=== PATIENT | male | born 1975 | race African-American/Black ===

== ENCOUNTER 2016-05-29 14:21 | Observation (INO) | payer MEDICARE, MEDICAID ==
[2016-05-29] MEDS ORDERED: ASPIRIN 81 MG TABLET, CHEWABLE PO ONE (14:51)
--- NOTE | 2016-05-29 14:55 | ER Document Report ---
ED Medical Screen (RME) - General Stated Complaint: CHEST PAIN Mode of Arrival: Ambulatory Information source: Patient Notes: 40 y/o M presents to ED c/o chest pain. Reports onset of chest pain today while driving. States pain worse with deep breathing. Denies fever or recent illness. I have greeted and performed a rapid initial assessment of this patient. A comprehensive ED assessment and evaluation of the patient, analysis of test results and completion of the medical decision making process will be conducted by additional ED providers. TRAVEL OUTSIDE OF THE [place] IN LAST 30 DAYS: No - Related Data Allergies/Adverse Reactions: No Known Allergies Allergy (Verified 05/29/16 14:51) Past Medical History - Social History Chew tobacco use (# tins/day): No Frequency of alcohol use: None Drug Abuse: None - Past Medical History Cardiac Medical History: Reports: Hx Hypertension Endocrine Medical History: Reports: Hx Diabetes Mellitus Type 2 Renal/ Medical History: Denies: Hx Peritoneal Dialysis Musculoskeltal Medical History: Reports Hx Arthritis - gout, rheumatoid arthritis Psychiatric Medical History: Reports: Hx Schizophrenia Past Surgical History: Reports: Hx Orthopedic Surgery - Immunizations Immunizations up to date: Yes Hx Diphtheria, Pertussis, Tetanus Vaccination: No Physical Exam - Vital signs Vitals: Temp Pulse Resp BP Pulse Ox 98.0 F 95 18 145/92 H 97 05/29/16 14:49 05/29/16 14:49 05/29/16 14:49 05/29/16 14:49 05/29/16 14:49 - General General appearance: Alert In distress: None - Respiratory Respiratory status: No respiratory distress - Cardiovascular Rhythm: Regular Pulses: Normal: Radial Normal capillary refill: Yes Course - Vital Signs Vital signs: Temp Pulse Resp BP Pulse Ox 98.0 F 95 18 145/92 H 97 05/29/16 14:49 05/29/16 14:49 05/29/16 14:49 05/29/16 14:49 05/29/16 14:49
[2016-05-29 15:15] LABS: ABSOLUTE BASOPHILS # (AUTO) 0.1 10^3/uL (0.0-0.2); ABSOLUTE EOSINOPHILS # (AUTO) 0.2 10^3/uL (0.0-0.6); ABSOLUTE LYMPHOCYTES (AUTO) 2.3 10^3/uL (0.5-4.7); ABSOLUTE MONOCYTES (AUTO) 0.5 10^3/uL (0.1-1.4); BASOPHILS % (AUTO) 0.7 % (0-2); EOSINOPHILS % (AUTO) 2.2 % (0-6); HEMATOCRIT 45.2 % (37.9-51.0); HEMOGLOBIN 15.4 g/dL (13.5-17.0); LYMPHOCYTES % (AUTO) 28.5 % (13-45); MEAN CORPUSCULAR VOLUME 85 fl (80-97); MONOCYTES % (AUTO) 6.5 % (3-13); SEGMENTED NEUTROPHILS % (AUTO) 62.1 % (42-78); WHITE BLOOD COUNT 8.1 10^3/uL (4.0-10.5)
[2016-05-29 15:28] LABS: ALANINE AMINOTRANSFERASE 36 U/L (21-72); ALBUMIN 4.4 g/dL (3.5-5.0); ALKALINE PHOSPHATASE 113 U/L (38-126); ANION GAP 15 (5-19); ASPARTATE AMINO TRANSFERASE 28 U/L (17-59); BILIRUBIN,TOTAL 0.5 mg/dL (0.2-1.3); BLOOD UREA NITROGEN 13 mg/dL (7-20); CARBON DIOXIDE 25 mmol/L (22-30); CHLORIDE 101 mmol/L (98-107); CREATINE KINASE 131 U/L (55-170); CREATININE RESULT 1.35 mg/dL (0.52-1.25); GLUCOSE 239 mg/dL (75-110); LIPASE 260.3 U/L (23-300); SODIUM 140.9 mmol/L (137-145); TOTAL PROTEIN 7.3 g/dL (6.3-8.2)
--- NOTE | 2016-05-29 15:31 | EKG REPORT ---
SEVERITY:- BORDERLINE ECG - SINUS RHYTHM BORDERLINE T ABNORMALITIES, INFERIOR LEADS : Confirmed by: Navdeep Arriaza MD 29-May-2016 15:30:57
[2016-05-29 15:39] LABS: CREATINE KINASE MB 1.04 ng/mL (<4.55)
[2016-05-29 15:46] LABS: TROPONIN I 0.035 ng/mL
[2016-05-29] MEDS ORDERED: ACETAMINOPHEN 325 MG TABLET PO ONE (16:22)
[2016-05-29] MEDS ORDERED: ONDANSETRON HCL INJ/PF 4 MG/2 ML SDV IV ONE (16:22)
[2016-05-29] MEDS ORDERED: MORPHINE SULFATE 10 MG/ML INJ IV PRN (16:22)
[2016-05-29] MEDS ORDERED: NITROGLYCERIN 2% OINTMENT 1 GM PACKET TP ONE (16:22)
[2016-05-29] MEDS ORDERED: NORMAL SALINE 1000 ML 1,000 ML IV PRN (16:25)
--- NOTE | 2016-05-29 16:26 | ER Document Report ---
ED General - General Chief Complaint: Chest Pain Stated Complaint: CHEST PAIN Time seen by provider: 16:23 Mode of Arrival: Ambulatory Information source: Patient Notes: As is a 40-year-old man with a history of diabetes, gout, hypertension who presents to the emergency room with retrosternal chest pain. He describes it as sometimes sharp and sometimes heavily. Pain is nonradiating. There is no association with exertion. It does seem to be worse with movement. He denies any fever, chills. TRAVEL OUTSIDE OF THE [place] IN LAST 30 DAYS: No - HPI Onset: Yesterday Onset/Duration: Intermittent Quality of pain: Dull Severity: Moderate Pain Level: 3 Associated symptoms: denies: Chills, Fever, Shortness of breath Exacerbated by: Movement Relieved by: Denies Similar symptoms previously: No Recently seen / treated by doctor: No - Related Data Allergies/Adverse Reactions: No Known Allergies Allergy (Verified 05/29/16 14:51) Past Medical History - General Information source: Patient - Social History Smoking Status: Never Smoker Chew tobacco use (# tins/day): No Frequency of alcohol use: None Drug Abuse: None Lives with: Family Family History: Reviewed & Not Pertinent Patient has suicidal ideation: No Patient has homicidal ideation: No - Past Medical History Cardiac Medical History: Reports: Hx Hypertension Pulmonary Medical History: Reports: None Neurological Medical History: Reports: None Endocrine Medical History: Reports: Hx Diabetes Mellitus Type 2 Renal/ Medical History: Denies: Hx Peritoneal Dialysis Malignancy Medical History: Reports None Musculoskeltal Medical History: Reports Hx Arthritis - gout, rheumatoid arthritis Psychiatric Medical History: Reports: Hx Schizophrenia Past Surgical History: Reports: Hx Orthopedic Surgery - Immunizations Immunizations up to date: Yes Hx Diphtheria, Pertussis, Tetanus Vaccination: No Hx Pneumococcal Vaccination: 04/02/00 Review of Systems - Review of Systems Notes: Review of systems: Constitutional: Denies fever, chills. EENT: Denies ear pain, sinus tenderness, throat pain, throat swelling. Cardiovascular: See H&P Respiratory: Denies wheezing, cough, hemoptysis. Abdomen: Denies abdominal pain, nausea, vomiting, diarrhea. Denies BRBPR or melena. Genitourinary: Denies dysuria, pyuria, hematuria, flank pain. Musculoskeletal: denies joint pain or swelling, denies back pain. Neurologic: Denies headache, photophobia, neck stiffness, weakness. Denies loss of bowel or bladder function. Denies saddle anesthesia. Skin: Denies rash, lesions. Physical Exam - Vital signs Vitals: Temp Pulse Resp BP Pulse Ox 98.0 F 95 18 145/92 H 97 05/29/16 14:49 05/29/16 14:49 05/29/16 14:49 05/29/16 14:49 05/29/16 14:49 Notes: Physical exam: GENERAL: 40-year-old man, alert and oriented 3, no acute distress. HEAD: Atraumatic, normocephalic. EYES: Pupils equal round and reactive to light, extraocular movements intact, sclera anicteric, conjunctiva are normal. ENT: TMs normal, nares patent, oropharynx clear without exudates. Moist mucous membranes. NECK: Normal range of motion, supple without lymphadenopathy or JVD. LUNGS: Breath sounds clear to auscultation bilaterally and equal. No wheezes rales or rhonchi. HEART: Regular rate and rhythm without murmurs, rubs or gallops. ABDOMEN: Soft, normoactive bowel sounds. No tenderness to palpation. No guarding, no rebound. No masses appreciated. EXTREMITIES: Normal range of motion, no pitting or edema. No clubbing or cyanosis. NEUROLOGICAL: Cranial nerves II through XII grossly intact. Normal speech, normal gait. PSYCH: Normal mood, normal affect. SKIN: Warm, Dry, normal turgor, no rashes or lesions noted. Course - Re-evaluation Re-evalutation: 05/29/16 17:40 Note: The patient is currently pain free after IV morphine, Zofran and Nitropaste. While the patient's pain is somewhat atypical and it seems the morphine is help most for pain, he does have insulin requiring diabetes and hypertension and he was hypertensive on arrival. Therefore, we plan on bringing him into the hospital for further cardiac monitoring and serial enzymes. - Vital Signs Vital signs: Temp Pulse Resp BP Pulse Ox 97.9 F 95 16 150/102 H 100 05/29/16 18:45 05/29/16 14:49 05/29/16 19:00 05/29/16 18:15 05/29/16 19:00 - Laboratory Result Diagrams: 05/29/16 15:00 05/29/16 15:00 Laboratory results interpreted by me: 05/29/16 05/29/16 05/29/16 15:00 15:00 15:00 RDW 16.0 H Creatinine 1.35 H Est GFR (Non-Af Amer) 59 L Glucose 239 H Urine Glucose (UA) 50 H - Diagnostic Test Radiology reviewed: Image reviewed, Reports reviewed - Chest x-ray shows no infiltrates or effusions - EKG Interpretation by Me Rate: Normal Rhythm: NSR - EKG shows normal sinus rhythm with a ventricular rate of 93, no acute ST-T wave change Discharge - Discharge Clinical Impression: chest pain Condition: Stable Disposition: ADMITTED OBSERVATION Admitting Provider: Hospitalist - Dr Pete Unit Admitted: Telemetry
[2016-05-29 17:08] LABS: APPEARANCE,URINE CLEAR; BILIRUBIN,URINE NEGATIVE (NEGATIVE); GLUCOSE, URINE 50 mg/dL (NEGATIVE); KETONES,URINE NEGATIVE (NEGATIVE); LEUKOCYTE ESTERASE,URINE NEGATIVE (NEGATIVE); NITRITE,URINE NEGATIVE (NEGATIVE); PROTEIN,URINE NEGATIVE (NEGATIVE); URINE SPECIFIC GRAVITY 1.009; UROBILINOGEN,URINE NEGATIVE mg/dL (<2.0)
[2016-05-29] MEDS ORDERED: NITROGLYCERIN 0.4 MG/TAB 25 TAB/BOTTLE SL PRN (17:42)
[2016-05-29] MEDS: FAMOTIDINE 20 MG TABLET PO SCH (18:43)
[2016-05-29] MEDS: ENOXAPARIN SODIUM INJ 40 MG/0.4 ML DISP.SYRIN SUBCUT SCH (18:44)
[2016-05-29] MEDS ORDERED: INFLUENZA ADLT QUAD (36MOS+) 2016-17 VAC 0.5 ML SYR IM PRN (19:53)
--- NOTE | 2016-05-29 19:57 | PDOC CONSULTATION ---
Consultation Consult Date: 05/29/16 Attending physician:: IKE VALDEZ Consult reason:: Chest pain History of Present Illness Admission Date/PCP: 05/29/16 17:42 Patient complains of: Chest pain History of Present Illness: MATA NICOLE is a 40 year old male with a history of diabetes, gout, hypertension who presents to the emergency room with retrosternal chest pain. He describes it as sometimes sharp and sometimes heavily. Pain is nonradiating. There is no association with exertion. It does seem to be worse with movement. Patient also claims it's worse with taking in a deep breath. He denies any fever, chills. Patient denied any prior history of heart problems. Past Medical History Cardiac Medical History: Reports: Hypertension Endocrine Medical History: Reports: Diabetes Mellitus Type 2 Musculoskeltal Medical History: Reports: Arthritis - gout, rheumatoid arthritis Hematology: Denies: Anemia Past Surgical History Past Surgical History: Reports: Orthopedic Surgery Social History Information Source: Patient Smoking Status: Never Smoker Frequency of Alcohol Use: None Hx Recreational Drug Use: No Hx Prescription Drug Abuse: No - Advance Directive Resuscitation Status: Full Code Surrogate healthcare decision maker:: Patient is the surrogate decision maker Family History Family History: Reviewed & Not Pertinent Parental Family History Reviewed: Yes Children Family History Reviewed: Yes Sibling(s) Family History Reviewed.: Yes - Patient denies family history of premature coronary artery disease or sudden cardiac in immediate family members Medication/Allergy Allergies/Adverse Reactions: No Known Allergies Allergy (Verified 05/29/16 14:51) Review of Systems Review of Systems: Please see history of present illness and past medical history as wall. Constitutional: No fever or chills reported. Head : No recent chronic headaches, recent head injury. Eyes: No recent eye pain, diplopia, redness, discharge, acute visual changes. Ears: No recent chronic ear pain, acute hearing loss, ear discharge. Oral cavity: No recent ulcerations, bleeding, oral cavity discomfort. Neck: No recent acute neck pain reported. Hematologic: No recent easy bruising or bleeding or hematologic malignancy reported. Lymphatic: No recent lymphatic malignancy, chronic lymphadenopathy reported yet Cardiovascular system review: See history of present illness. Respiratory system review: No recent chronic cough, hemoptysis, blood clots in the lungs reported. Mild Shortness of breath on exertion Gastrointestinal system review: Negative for any recent acute or chronic abdominal pain, hematemesis, melena, recent change in bowel habits. Genitourinary system review: No recent acute or chronic hematuria, flank pain, UTI etc. reported. Skin system review: Negative for any recent abnormal bruising, no rash, no pruritus reported. Neurologic: No prior history of strokes, mini strokes, seizure disorder. Psychologic: No history of major psychosis or major depression reported. Musculoskeletal: Minor aches and pains reported. No acute joint swelling reported. Endocrine: No recent polyuria, polydipsia, recent heat or cold intolerance. Physical Exam Vital Signs: Temp Pulse Resp BP Pulse Ox 97.9 F 95 16 150/102 H 100 05/29/16 18:45 05/29/16 14:49 05/29/16 19:00 05/29/16 18:15 05/29/16 19:00 Exam: GENERAL: well-nourished and in no acute distress. Alert and oriented x3 HEAD: Atraumatic, normocephalic. EYES: Pupils equal round and reactive to light, extraocular movements intact, sclera anicteric, conjunctiva are normal. ENT: TMs normal, nares patent, oropharynx clear without exudates. Moist mucous membranes. No oral ulcerations or bleeding gums noted NECK: supple without lymphadenopathy. Trachea is central. No cervical or axillary lymphadenopathy noted. Carotids are 2+, JVD WNL LUNGS: Respiration seems nonlabored, no significant accessory muscle action noted. Breath sounds clear to auscultation bilaterally and equal noted. No wheezes rales or rhonchi noted. No significant dullness noted on percussion. CHEST: Palpation of the chest wall shows mild bilateral chest wall tenderness. No other significant abnormalities noted. HEART: [place] [employer], No PSH, 1/6 FELICIANO aortic area, 1/6 tapia systolic murmur mitral area, no rubs, no gallops. ABDOMEN: Soft, no significant tenderness appreciated, normoactive bowel sounds. No guarding, no rebound. No rigidity noted . No masses appreciated. EXTREMITIES: Pedal pulses are 1-2+, no calf tenderness noted. No clubbing or cyanosis.trace to 1+ pedal edema noted NEUROLOGICAL: Focused neurological exam showed no significant neurologic deficit. Normal speech, no focal weakness appreciated. PSYCH: Normal mood, normal affect. Judgment and insight within normal limits. SKIN: No significant ecchymosis, rash, ulcerations or signs of pruritus noted. MUSCULOSKELETAL EXAM: No significant joint swelling noted. Results EKG Comments: Sinus rhythm, minor nonspecific T-wave inversion inferior leads. Impressions: Chest X-Ray 05/29/16 14:52 IMPRESSION: NO SIGNIFICANT RADIOGRAPHIC FINDING IN THE CHEST. Assessment & Plan - Diagnosis (1) Chest pain Qualifiers: Chest pain type: unspecified Qualified Code(s): R07.9 - Chest pain, unspecified Is this a current diagnosis for this admission?: Yes (2) Hypertension Is this a current diagnosis for this admission?: Yes (3) Diabetes Qualifiers: Diabetes mellitus type: type 2 Diabetes mellitus complication status: with unspecified complications Is this a current diagnosis for this admission?: Yes - Notes Notes: Chest pain: Sounds atypical. Patient does however have significant cardiac risk factors. Patient will benefit from a nuclear stress test. This will be scheduled. Hypertension: Currently blood pressures is satisfactory and reasonably well controlled. Blood pressure goal in this patient is 135/85 or less. This was discussed with the patient. Currently blood pressure under reasonable control. Better medication for this patient are WILD inhibitor/ARB/beta luisito etc. discussed side effects of uncontrolled hypertension and also severe hypotension. Diabetes:Diabetes: Recommend good control of blood sugar. However should avoid any hypoglycemia. Patient being expertly managed by primary care M.D. - Time Time Spent: 30 to 50 Minutes - CODE STATUS was discussed, patient remains full code. Surrogate decision-maker unchanged. Multiple medical problems were addressed.More than 50% of the time spent coordinating care, discussing management plans with involved caregivers. Management plans discussed with involved personnels. Medical decision making was of moderate complexity. Medications reviewed and adjusted accordingly: Yes
[2016-05-29 21:02] LABS: CHOLESTEROL 141.52 mg/dL (0-200); Direct HDL 37 mg/dL (>40); TRIGLYCERIDES 381 mg/dL (<150)
[2016-05-29 21:13] LABS: DIRECT LDL 58 mg/dL (<100)
[2016-05-29 21:14] LABS: VLDL CHOLESTEROL 76.2 mg/dL (10-31)
--- NOTE | 2016-05-29 22:11 | PDOC H&P ---
History of Present Illness Admission Date/PCP: 05/29/16 17:42 Patient complains of: Chest pain History of Present Illness: This patient is a 40-year-old man with a history of diabetes hypertension and gout who presents to the emergency department with a retrosternal chest pain that he describes repeatedly as a "trisha hammer." The pain is nonradiating. It had been present for at least 5 hours continuously prior to the time of my interview and examination. There were no aggravating or alleviating factors. He denied to nausea. He denied cough or shortness of breath. He denied fever sweats or chills. He denied abusing illicit drugs. He denied missing any of his usual medications. Past Medical History Cardiac Medical History: Reports: Hypertension Pulmonary Medical History: Reports: None Neurological Medical History: Reports: None Endocrine Medical History: Reports: Diabetes Mellitus Type 2 Malignancy Medical History: Reports: None Musculoskeltal Medical History: Reports: Arthritis - gout, rheumatoid arthritis Psychiatric Medical History: Denies: Depression Hematology: Denies: Anemia Past Surgical History Past Surgical History: Reports: Orthopedic Surgery Social History Lives with: Family Smoking Status: Never Smoker Number of Years Smokin Last Time Smoked: 05/25/16 Frequency of Alcohol Use: None Hx Recreational Drug Use: No Drugs: None Hx Prescription Drug Abuse: No - Advance Directive Resuscitation Status: Full Code Family History Family History: Reviewed & Not Pertinent Parental Family History Reviewed: No Children Family History Reviewed: No Sibling(s) Family History Reviewed.: No Medication/Allergy Home Medications: Allopurinol [Zyloprim 100 mg Tablet] 100 mg PO TID 05/29/16 Atorvastatin Calcium 10 mg PO QHS 05/29/16 Colchicine [Colchicine 0.6 mg Tablet] 0.6 mg PO QAM 05/29/16 Gabapentin 100 mg PO Q8 05/29/16 Insulin Glargine,Hum.rec.anlog [Lantus] 50 units SQ QHS 05/29/16 Insulin Lispro [Humalog] 20 unit SQ LUIS ANTONIO 05/29/16 Lisinopril/Hydrochlorothiazide [Lisinopril-Hctz 20-12.5 mg Tab] 1 tab PO Q12 Metformin HCl [Glucophage] 1,000 mg PO BIDACBS 05/29/16 Oxycodone HCl 5 mg PO Q4HP PRN 05/29/16 Allergies/Adverse Reactions: No Known Allergies Allergy (Verified 05/29/16 14:51) Physical Exam Vital Signs: Temp Pulse Resp BP Pulse Ox 98.2 F 95 17 150/102 H 99 05/29/16 21:49 05/29/16 14:49 05/29/16 20:00 05/29/16 18:15 05/29/16 20:00 General appearance: PRESENT: no acute distress, well-developed, well-nourished, other - No diaphoresis Head exam: PRESENT: atraumatic, normocephalic Eye exam: PRESENT: conjunctiva pink, EOMI, PERRLA. ABSENT: scleral icterus Ear exam: PRESENT: normal external ear exam Mouth exam: PRESENT: moist, tongue midline Neck exam: ABSENT: carotid bruit, JVD, lymphadenopathy, thyromegaly Respiratory exam: PRESENT: clear to auscultation rimma. ABSENT: rales, rhonchi, wheezes Cardiovascular exam: PRESENT: RRR. ABSENT: diastolic murmur, rubs, systolic murmur Pulses: PRESENT: normal dorsalis pedis pul Vascular exam: PRESENT: normal capillary refill GI/Abdominal exam: PRESENT: normal bowel sounds, soft. ABSENT: distended, guarding, mass, organolmegaly, rebound, tenderness Rectal exam: PRESENT: deferred Extremities exam: PRESENT: full ROM. ABSENT: calf tenderness, clubbing, pedal edema Neurological exam: PRESENT: alert, awake, oriented to person, oriented to place , oriented to time, oriented to situation, CN II-XII grossly intact. ABSENT: motor sensory deficit Psychiatric exam: PRESENT: appropriate affect, normal mood. ABSENT: homicidal ideation, suicidal ideation Skin exam: PRESENT: dry, intact, warm. ABSENT: cyanosis, rash Results Laboratory Results: 05/29/16 20:50 Troponin I 0.041 Impressions: Chest X-Ray 05/29/16 14:52 IMPRESSION: NO SIGNIFICANT RADIOGRAPHIC FINDING IN THE CHEST. Assessment & Plan - Diagnosis (1) Chest pain Qualifiers: Chest pain type: unspecified Qualified Code(s): R07.9 - Chest pain, unspecified Is this a current diagnosis for this admission?: YesPlan: The chest pain seems atypical. He describes it as a "trisha hammer." I'll check serial cardiac enzymes and a cardiology consultation. We'll check a d-dimer and a urinary drug screen. (2) Diabetes Qualifiers: Diabetes mellitus type: type 2 Diabetes mellitus complication status: with unspecified complications Is this a current diagnosis for this admission?: YesPlan: We'll continue his current medications and monitor. (3) Hypertension Is this a current diagnosis for this admission?: YesPlan: Will continue his current medications and monitor. - Time Time Spent: 50 to 70 Minutes
[2016-05-29 22:24] LABS: URINE BARBITURATES SCREEN NEGATIVE; URINE METHADONE SCREEN NEGATIVE; URINE OPIATES LOW NEGATIVE; URINE PHENCYCLIDINE SCREEN NEGATIVE
[2016-05-29] MEDS ORDERED: OXYCODONE HCL IR 5 MG TABLET PO PRN (23:44)
[2016-05-29] MEDS ORDERED: ACETAMINOPHEN 325 MG TABLET PO PRN (23:44)
[2016-05-30] MEDS: ENOXAPARIN SODIUM INJ 40 MG/0.4 ML DISP.SYRIN SUBCUT SCH (06:46)
[2016-05-30] MEDS: FAMOTIDINE 20 MG TABLET PO SCH ×2 (06:46→17:34)
[2016-05-30] MEDS ORDERED: DEXTROSE 40% GEL 15 GM TUBE PO PRN ×2 (08:07)
[2016-05-30] MEDS ORDERED: GLUCAGON,HUMAN RECOMB 1 MG INJ IM PRN (08:07)
[2016-05-30] MEDS ORDERED: DEXTROSE 50%-WATER 25 GM/50 ML DISP.SYRIN IV PRN ×2 (08:07)
[2016-05-30 08:15] LABS: ABSOLUTE BASOPHILS # (AUTO) 0.1 10^3/uL (0.0-0.2); ABSOLUTE EOSINOPHILS # (AUTO) 0.1 10^3/uL (0.0-0.6); ABSOLUTE LYMPHOCYTES (AUTO) 2.5 10^3/uL (0.5-4.7); ABSOLUTE MONOCYTES (AUTO) 0.6 10^3/uL (0.1-1.4); ABSOLUTE NEUT (AUTO) 4.2 10^3/uL (1.7-8.2); BASOPHILS % (AUTO) 0.9 % (0-2); HEMATOCRIT 40.7 % (37.9-51.0); HEMOGLOBIN 13.6 g/dL (13.5-17.0); HGB HCT DIFFERENCE 0.1; LYMPHOCYTES % (AUTO) 33.4 % (13-45); MEAN CORPUSCULAR HEMOGLOBIN 28.4 pg (27.0-33.4); MEAN CORPUSCULAR HGB CONC 33.4 g/dL (32.0-36.0); MEAN CORPUSCULAR VOLUME 85 fl (80-97); MONOCYTES % (AUTO) 7.8 % (3-13); RED BLOOD COUNT 4.78 10^6/uL (4.35-5.55); RED CELL DISTRIBUTION WIDTH 15.9 % (11.5-14.0); SEGMENTED NEUTROPHILS % (AUTO) 55.9 % (42-78); WHITE BLOOD COUNT 7.4 10^3/uL (4.0-10.5)
[2016-05-30 08:37] LABS: ANION GAP 13 (5-19); BLOOD UREA NITROGEN 11 mg/dL (7-20); CALCIUM 8.9 mg/dL (8.4-10.2); CARBON DIOXIDE 23 mmol/L (22-30); CHLORIDE 103 mmol/L (98-107); CHOLESTEROL 127.12 mg/dL (0-200); Direct HDL 31 mg/dL (>40); GLUCOSE 169 mg/dL (75-110); POTASSIUM 4.7 mmol/L (3.6-5.0); SODIUM 138.8 mmol/L (137-145); TRIGLYCERIDES 346 mg/dL (<150)
[2016-05-30 08:38] LABS: CREATININE RESULT 1.04 mg/dL (0.52-1.25)
[2016-05-30 08:39] LABS: VLDL CHOLESTEROL 69.2 mg/dL (10-31)
[2016-05-30 08:52] LABS: DIRECT LDL 51 mg/dL (<100)
--- NOTE | 2016-05-30 09:15 | Progress Note ---
Provider Note Provider Note: 05/29/2016: Patient's d-dimer was positive. Further imaging to rule out pulmonary embolus was felt necessary. Patient at that time was tentatively scheduled for nuclear medicine stress test on the . Review of his chart revealed he had taken thousand milligrams of metformin the morning of the . I discussed this with the fashion editor radiologist, who stated that ideally he should be hydrated a bit longer prior to undergoing CT angiogram of chest. I then discussed situation by phone with Dr. Siu, fashion editor transit operations supervisor who had seen patient in consultation earlier in the evening concerning his chest pain. He felt we probably should proceed with ventilation perfusion lung scan.
[2016-05-30] MEDS: LISINOPRIL 10 MG TABLET PO SCH ×2 (09:54→21:44)
[2016-05-30] MEDS: ASPIRIN 81 MG TABLET, ENT COATED PO SCH (09:54)
[2016-05-30] MEDS: ALLOPURINOL 100 MG TABLET PO SCH ×3 (09:54→17:34)
[2016-05-30] MEDS: COLCHICINE 0.6 MG TABLET PO SCH (09:54)
[2016-05-30] MEDS: HYDROCHLOROTHIAZIDE 12.5 MG CAPSULE PO SCH ×2 (09:54→21:44)
[2016-05-30] MEDS ORDERED: (PENDING PHARMACY ID) (Lisinopril/Hydrochlorothiazide [Lisinopril-Hctz 20-12.5 Mg Tab] 1 T PO SCH (10:00)
--- NOTE | 2016-05-30 12:37 | DRAGON STRESS TEST REPORT ---
EXERCISE TREADMILL TEST. DATE OF PROCEDURE: 05/30/2016 INDICATION: Patient with unspecified chest pain. Coronary risk factors: Hypertension, diabetes, dyslipidemia. Resting EKG: Sinus rhythm, no baseline ST segment changes. Stress EKG: No significant changes noted with with exercise treadmill. Reason for termination: Dyspnea and fatigue. PROCEDURE REPORT: Baseline heart rate: 97 beats per minute with blood pressure of 143/104. Patient had no significant complaints at baseline. Patient was exercised on a standard Gonzalez protocol. Patient exercised for total of 6 minutes and 07 seconds. Exercise was stopped because of fatigue and shortness of breath. Patient denied any chest arm or neck discomfort during the exercise, at peak exercise or in recovery. If automatic blood pressure recorded and if felt not accurate manual blood pressure then were recorded at appropriate intervals. Heart rate at peak exercise: 148 bpm, 82% of predicted maximum. Peak blood pressure: 160/100 mmHg. Double product: 23.7 Exercise EKG: Showed some baseline artifact during exercise but no significant ST segment changes noted. CONCLUSIONS: No significant ST segment depression noted during exercise or in recovery. Somewhat of a suboptimal heart rate and truncated blood pressure response but adequate double product. Initially during exercise test, blood pressure were noted to be lower than resting but could have been a sensing problem with automatic blood pressure measurements. RECOMMENDATIONS: Patient may benefit from a pharmacologic/exercise nuclear stress test. This I believe can be scheduled as an outpatient. This is predominantly due to some concern about patient's blood pressure response. Aggressive risk factor modification, medical therapy. Consider cardiology consultation if clinically indicated. Carla Siu M.D., ANDREI Guard Driver pharmacy informatics specialist, Board certified in cardiovascular diseases, Nuclear cardiology, Echocardiography Cardiac CT and cardiac MRI Ph. [phone] Ph. [phone] [facility]
[2016-05-30] MEDS: GABAPENTIN 100 MG CAPSULE PO SCH ×2 (13:51→21:45)
[2016-05-30] MEDS ORDERED: LANSOPRAZOLE 30 MG TAB.RAP.DR PO ONE (16:00)
[2016-05-30] MEDS ORDERED: MAGNESIUM CITRATE 296 ML BOTTLE PO ONE (16:30)
[2016-05-30] MEDS ORDERED: ENOXAPARIN SODIUM INJ 40 MG/0.4 ML DISP.SYRIN SUBCUT SCH (18:00)
[2016-05-30] MEDS ORDERED: ENOXAPARIN SODIUM INJ 100 MG/1 ML DISP.SYRIN SUBCUT SCH (18:00)
[2016-05-30] MEDS: INSULIN LISPRO 100 UNIT/ML 3 ML VIAL SUBCUT PRN ×2 (19:31→21:42)
[2016-05-30] MEDS: TRAMADOL HCL 50 MG TABLET PO PRN (20:19)
[2016-05-30] MEDS ORDERED: ATORVASTATIN CALCIUM 10 MG TABLET PO SCH (22:00)
[2016-05-30] MEDS ORDERED: INSULIN GLARGINE,HUM.REC.ANLOG 1,000 UNIT/10 ML UNIT SUBCUT SCH (22:00)
[2016-05-31] MEDS: FAMOTIDINE 20 MG TABLET PO SCH (05:45)
[2016-05-31] MEDS: GABAPENTIN 100 MG CAPSULE PO SCH (05:46)
[2016-05-31] MEDS ORDERED: LANSOPRAZOLE 30 MG TAB.RAP.DR PO SCH (06:00)
[2016-05-31 06:20] LABS: HEMATOCRIT 43.6 % (37.9-51.0); HEMOGLOBIN 14.8 g/dL (13.5-17.0); HGB HCT DIFFERENCE 0.8; MEAN CORPUSCULAR HEMOGLOBIN 28.8 pg (27.0-33.4); MEAN CORPUSCULAR VOLUME 85 fl (80-97); RED BLOOD COUNT 5.15 10^6/uL (4.35-5.55); RED CELL DISTRIBUTION WIDTH 16.2 % (11.5-14.0); WHITE BLOOD COUNT 7.1 10^3/uL (4.0-10.5)
--- NOTE | 2016-05-31 07:28 | PDOC PROGRESS REPORT ---
Subjective Progress Note for:: 05/30/16 Subjective:: This is a late entry for 05/30/2016. Patient reports that he has midepigastric discomfort and right upper quadrant pain. He reports he feels as though he needs to have a bowel movement hasn't had one several days. Patient was reports that he went to [facility] and there was diagnosed with gastritis.Patient denies shortness of breath, vomiting, fevers, chills, diarrhea, headache, new onset weakness. Physical Exam Vital Signs: Temp Pulse Resp BP Pulse Ox 98.1 F 82 19 151/104 H 100 05/31/16 03:43 05/31/16 03:43 05/31/16 03:43 05/31/16 03:43 05/31/16 03:43 Intake & Output 05/29/16 05/30/16 05/31/16 06:59 06:59 06:59 Intake Total 0 250 Balance 0 250 Weight 101.4 kg 101.4 kg Exam: General: Awake alert and oriented x3, no acute respiratory distress HEENT: AT/NC, PERRL, EOMI, oropharynx is moist, pink, no scleral icterus, no conjunctival injection Neck: No JVD, trachea midline Chest: Clear to auscultation bilaterally, no wheezes rhonchi or rales CV: Regular rate and rhythm, normal S1 and S2, no murmur, rub, or gallop Abdomen: Soft, mildly tender to palpation right upper and lower quadrant, negative Kapoor sign, nondistended, diminished bowel sounds; no rebound, rigidity, or guarding Extremities: No cyanosis, clubbing or edema Neuro: Cranial nerves II through XII are grossly intact without focal deficits; awake alert and oriented x3 Psych: Normal mood and affect Results Laboratory Results: 05/31/16 05:25 05/30/16 07:17 05/30/16 05/30/16 05/31/16 07:17 07:17 05:25 WBC 7.4 7.1 RBC 4.78 5.15 Hgb 13.6 14.8 Hct 40.7 43.6 MCV 85 85 MCH 28.4 28.8 MCHC 33.4 34.0 RDW 15.9 H 16.2 H Plt Count 242 246 Seg Neutrophils % 55.9 Lymphocytes % 33.4 Monocytes % 7.8 Eosinophils % 2.0 Basophils % 0.9 Absolute Neutrophils 4.2 Absolute Lymphocytes 2.5 Absolute Monocytes 0.6 Absolute Eosinophils 0.1 Absolute Basophils 0.1 Sodium 138.8 Potassium 4.7 Chloride 103 Carbon Dioxide 23 Anion Gap 13 BUN 11 Creatinine 1.04 Est GFR ( Amer) > 60 Est GFR (Non-Af Amer) > 60 Glucose 169 H Calcium 8.9 Triglycerides 346 H Cholesterol 127.12 LDL Cholesterol Direct 51 VLDL Cholesterol 69.2 H HDL Cholesterol 31 L 05/29/16 05/30/16 05/30/16 20:50 02:13 07:17 Troponin I 0.041 0.039 0.040 Impressions: Chest X-Ray 05/29/16 14:52 IMPRESSION: NO SIGNIFICANT RADIOGRAPHIC FINDING IN THE CHEST. Lung Scan-VQ NM 05/29/16 23:09 IMPRESSION: NORMAL VENTILATION-PERFUSION LUNG SCAN. NEGATIVE FOR PULMONARY EMBOLI. Abdomen Ultrasound 05/30/16 00:00 IMPRESSION: FATTY LIVER. PANCREAS AND AORTA NOT VISUALIZED. OTHERWISE NORMAL RIGHT UPPER QUADRANT ULTRASOUND. KUB X-Ray 05/30/16 00:00 IMPRESSION: NO RADIOGRAPHIC EVIDENCE FOR ACUTE ABDOMINAL DISEASE. Assessment & Plan - Diagnosis (1) Abdominal discomfort in right upper quadrant Is this a current diagnosis for this admission?: YesPlan: Will obtain a right upper quadrant ultrasound. Patient had an abdominal MRI done in April of this year revealing significant hepatic steatohepatitis is. Patient has a follow-up appointment with Dr. Khalil on the second. He is advised to keep this. Patient also is significantly constipated and this is likely contributing to this. Patient's pain is reported is out of proportion to physical examination. (2) Chest pain Qualifiers: Chest pain type: unspecified Qualified Code(s): R07.9 - Chest pain, unspecified Is this a current diagnosis for this admission?: YesPlan: Patient had indeterminate stress test and indeterminate troponins. I discussed this case with Dr. duff the labeling associate reading the stress test and he advised that patient have a outpatient stress test follow-up with him. (3) Diabetes Qualifiers: Diabetes mellitus type: type 2 Diabetes mellitus complication status: with unspecified complications Diabetes mellitus joint terminal attack controller insulin use: with fpc use Qualified Code(s): E11.8 - Type 2 diabetes mellitus with unspecified complications; Z79.4 - adjunct faculty for medical terminology (current) use of insulin Is this a current diagnosis for this admission?: YesPlan: Patient is advised to follow strictly this diet. (4) Hypertension Qualifiers: Hypertension type: essential hypertension Qualified Code(s): I10 - Essential (primary) hypertension Is this a current diagnosis for this admission?: Yes - Time Time Spent with patient: 25-34 minutes Medications reviewed and adjusted accordingly: Yes Anticipated discharge: Home Within: within 24 hours
[2016-05-31] MEDS: INSULIN LISPRO 100 UNIT/ML 3 ML VIAL SUBCUT PRN (09:03)
[2016-05-31] MEDS: ASPIRIN 81 MG TABLET, ENT COATED PO SCH (09:04)
[2016-05-31] MEDS: HYDROCHLOROTHIAZIDE 12.5 MG CAPSULE PO SCH (09:04)
[2016-05-31] MEDS: COLCHICINE 0.6 MG TABLET PO SCH (09:04)
[2016-05-31] MEDS: ALLOPURINOL 100 MG TABLET PO SCH (09:04)
[2016-05-31] MEDS: LISINOPRIL 10 MG TABLET PO SCH (09:05)
[2016-05-31] MEDS: TRAMADOL HCL 50 MG TABLET PO PRN (09:10)
[2016-05-31 10:38] VITALS: BP 138/84
[2016-05-31] MEDS ORDERED: BISACODYL 5 MG TABEC PO ONE (11:00)
--- NOTE | 2016-05-31 23:39 | PDOC DISCHARGE SUMMARY ---
General - Admit/Disc Date/PCP Admission Date/Primary Care Provider: 05/29/16 17:42 Discharge Date: 05/31/16 - Discharge Diagnosis (1) Chest pain Is this a current diagnosis for this admission?: Yes (2) Diabetes Is this a current diagnosis for this admission?: Yes (3) Hypertension Is this a current diagnosis for this admission?: Yes (4) Steatohepatitis, nonalcoholic Is this a current diagnosis for this admission?: Yes (5) Gout Is this a current diagnosis for this admission?: Yes - Additional Information Resuscitation Status: Full Code Discharge Diet: Cardiac, Diabetic Discharge Activity: Activity As Tolerated Home Medications: Allopurinol [Zyloprim 100 mg Tablet] 100 mg PO TID 05/29/16 Colchicine [Colchicine 0.6 mg Tablet] 0.6 mg PO QAM 05/29/16 Gabapentin 100 mg PO Q8 05/29/16 Insulin Glargine,Hum.rec.anlog [Lantus] 50 units SQ QHS 05/29/16 Insulin Lispro [Humalog] 20 unit SQ LUIS ANTONIO 05/29/16 Lisinopril/Hydrochlorothiazide [Lisinopril-Hctz 20-12.5 mg Tab] 1 tab PO Q12 Metformin HCl [Glucophage] 1,000 mg PO BIDACBS 05/29/16 Aspirin [Ecotrin 81 mg EC Tablet] 81 mg PO DAILY #90 tabec 05/31/16 Atorvastatin Calcium [Lipitor 40 mg Tablet] 40 mg PO QHS #30 tablet 05/31/16 Docusate Sodium [Colace 100 mg Capsule] 100 mg PO BID #60 capsule 05/31/16 Omeprazole Magnesium [Prilosec Otc] 20 mg PO BID #60 tablet. 05/31/16 Tramadol HCl [Ultram 50 mg Tablet] 50 mg PO Q6HP PRN #10 tablet 05/31/16 History of Present Illness History of Present Illness: MATA NICOLE is a 40 year old male history of diabetes hypertension and gout who presents to the emergency department with a retrosternal chest pain that he describes repeatedly as a "trisha hammer." The pain is nonradiating. It had been present for at least 5 hours continuously prior to the time of my interview and examination. There were no aggravating or alleviating factors. He denied to nausea. He denied cough or shortness of breath. He denied fever sweats or chills. He denied abusing illicit drugs. He denied missing any of his usual medications. Hospital Course Hospital Course: Patient was placed on observation and ruled out for acute coronary syndrome. Patient to have a positive d-dimer and underwent VQ scan which was found to be negative for acute pulmonary emboli. Patient was unable to obtain a nuclear stress test, but still underwent stress test the following day. This was found to be indeterminant and patient was advised to follow-up with Dr. Siu as an outpatient for repeat chemical stress test. Patient then complained of right upper quadrant pain. Ultrasound was performed which did not reveal any acute cholecystitis. KUB revealed profound constipation. Patient scotoma bottle of mag citrate with minimal results and subsequently 20 mg of oral Dulcolax. Patient has a follow-up appointment with Dr. Khalil on 06/01/16 for discussion and evaluation of his steatohepatitis. Patient appears to have undergone evaluation for this complaint and April of this year complete with abdominal CT, abdominal MRI, and ultrasound at that time. I have discussed with patient following up with surgery and having possible hydroscan as an outpatient at the discretion of his GI physician. I also discussed this with Dr. Khalil. Patient' s reported abdominal pain is found to be out of proportion to his physical examination on more than with physical exam. Patient did ask for narcotic pain medications. Patient given prescription for Ultram. For patient's constipation he is also advised to increase the amount of fiber and water that he takes Phenergan and increase his level of activity. He is discharged in stable condition to follow-up his chronic medical conditions. Physical Exam Vital Signs: Temp Pulse Resp BP Pulse Ox 98.2 F 93 16 138/84 H 100 05/31/16 10:35 05/31/16 10:35 05/31/16 10:35 05/31/16 10:35 05/31/16 10:35 Intake & Output 05/30/16 05/31/16 06/01/16 06:59 06:59 06:59 Intake Total 0 250 600 Balance 0 250 600 Weight 101.4 kg 101.4 kg Exam: General: Awake alert and oriented x3, no acute respiratory distress HEENT: AT/NC, PERRL, EOMI, oropharynx is moist, pink, no scleral icterus, no conjunctival injection Neck: No JVD, trachea midline Chest: Clear to auscultation bilaterally, no wheezes rhonchi or rales CV: Regular rate and rhythm, normal S1 and S2, no murmur, rub, or gallop Abdomen: Soft, mildly tender to palpation right upper and lower quadrant, negative Kapoor sign, nondistended, active bowel sounds; no rebound, rigidity, or guarding Extremities: No cyanosis, clubbing or edema Neuro: Cranial nerves II through XII are grossly intact without focal deficits; awake alert and oriented x3 Psych: Normal mood and affect Results Laboratory Results: 05/31/16 05:25 05/30/16 07:17 05/31/16 05:25 WBC 7.1 RBC 5.15 Hgb 14.8 Hct 43.6 MCV 85 MCH 28.8 MCHC 34.0 RDW 16.2 H Plt Count 246 05/29/16 05/30/16 05/30/16 20:50 02:13 07:17 Troponin I 0.041 0.039 0.040 Impressions: Chest X-Ray 05/29/16 14:52 IMPRESSION: NO SIGNIFICANT RADIOGRAPHIC FINDING IN THE CHEST. Lung Scan-VQ NM 05/29/16 23:09 IMPRESSION: NORMAL VENTILATION-PERFUSION LUNG SCAN. NEGATIVE FOR PULMONARY EMBOLI. Abdomen Ultrasound 05/30/16 00:00 IMPRESSION: FATTY LIVER. PANCREAS AND AORTA NOT VISUALIZED. OTHERWISE NORMAL RIGHT UPPER QUADRANT ULTRASOUND. KUB X-Ray 05/30/16 00:00 IMPRESSION: NO RADIOGRAPHIC EVIDENCE FOR ACUTE ABDOMINAL DISEASE. Qualifiers PATEINT BEING DISCHARGED WITH ANY OF THE FOLLOWING DIAGNOSIS?: No Plan Time Spent: Greater than 30 Minutes
== END 2016-05-31 11:27 | disposition home or self-care (01) ==
LOC: ER 14:21 → EH 17:42 → UNDOADMOB 17:51 → EH 17:51 → 4S 05-30 02:11
PROVIDERS: ADMIT Internal Medicine; ATTEND Internal Medicine
PROC: 3E033GC Introduction of Other Therapeutic Substance into Peripheral Vein, Percutaneous Approach (ICD-10-PCS; principal; 2016-05-29)
PROC: 3E033GC Introduction of Other Therapeutic Substance into Peripheral Vein, Percutaneous Approach (ICD-10-PCS; 2016-05-29)
PROC: 3E0337Z Introduction of Electrolytic and Water Balance Substance into Peripheral Vein, Percutaneous Approach (ICD-10-PCS; 2016-05-29)
PROC: 3E023GC Introduction of Other Therapeutic Substance into Muscle, Percutaneous Approach (ICD-10-PCS; 2016-05-29)
PROC: 3E0234Z Introduction of Serum, Toxoid and Vaccine into Muscle, Percutaneous Approach (ICD-10-PCS; 2016-05-31)
DX: R07.89 Other chest pain (principal); E11.9 Type 2 diabetes mellitus without complications; I10 Essential (primary) hypertension; K75.81 Nonalcoholic steatohepatitis (NASH); M10.9 Gout, unspecified; M06.9 Rheumatoid arthritis, unspecified; Z79.4 Long term (current) use of insulin; Z79.82 Long term (current) use of aspirin; R10.11 Right upper quadrant pain; R79.1 Abnormal coagulation profile; Z23 Encounter for immunization
CPT/HCPCS: 90471; Q2039; 36415; 71020; 74000; 76705; 78582; 80048; 80053; 80061; 80307; 81001; 82550; 82553; 82962; 83690; 84484; 85025; 85027; 85379; 90686; 93005; 93010; 93017; 96361; 96372; 96374; 96375; 99285; A9540; A9567; G0008; G0378; J1650; J1815; J2270; J2405; J3490; J7030; Q9969

== ENCOUNTER 2018-03-18 09:10 | Observation (INO) | payer MEDICARE, MEDICAID ==
--- NOTE | 2018-03-18 09:44 | ER Document Report ---
ED General - General Chief Complaint: Chest Pain Stated Complaint: CHEST PAIN Time Seen by Provider: 03/18/18 09:44 Notes: Patient is a 42-year-old male that presents to the emergency department for chief complaint of chest pain. The patient reports that the pain started yesterday evening, and it was worse today. The currently rate the pain as 9 out of 10, and described as heaviness in the left side of his chest and substernal. They have had associated nausea and shortness of breath. Denies any diaphoresis, abdominal pain, fevers, chills or night sweats. Their risk factors for heart disease include diabetes mellitus, hypertension, hyperlipidemia, he did call his tunnel elastic operator zigzag office who advised him to come to the ED today. Past Medical History: Hypertension, diabetes mellitus, rheumatoid arthritis, hyperlipidemia Past Surgical History: Denies surgical history Social History: Admits to smoking cigarettes daily, denies alcohol or drug use. Family History: Reviewed and noncontributory for presenting illness Allergies: Reviewed, see documented allergy list. REVIEW OF SYSTEMS: Other than noted above, the 12 point review of systems was reviewed with the patient and were negative, all pertinent findings are included in the HPI. PHYSICAL EXAMINATION: Vital signs reviewed, nursing noted reviewed. GENERAL: Well-appearing, well-nourished, but does appeared to be in discomfort HEAD: Atraumatic, normocephalic. EYES: Eyes appear normal, extraocular movements intact, sclera anicteric, conjunctiva are normal. ENT: nares patent, oropharynx clear without exudates. Moist mucous membranes. NECK: Normal range of motion, supple without lymphadenopathy LUNGS: Breath sounds clear to auscultation bilaterally and equal. No wheezes rales or rhonchi. HEART: Regular rate and rhythm without murmurs ABDOMEN: Soft, nontender, normoactive bowel sounds. No rebound, guarding, or rigidity. No masses appreciated. EXTREMITIES: Nontender, good range of motion, no pitting or edema. NEUROLOGICAL: No focal neurological deficits. Moves all extremities spontaneously Motor and sensory grossly intact on exam. PSYCH: Normal mood, normal affect. SKIN: Warm, Dry, normal turgor, no rashes or lesions noted on exposed skin TRAVEL OUTSIDE OF THE [place] IN LAST 30 DAYS: No - Related Data Allergies/Adverse Reactions: IVP DYE Allergy (Uncoded 03/18/18 13:17) Past Medical History - Social History Smoking Status: Current Every Day Smoker Family History: Reviewed & Not Pertinent - Past Medical History Cardiac Medical History: Reports: Hx Hypertension Endocrine Medical History: Reports: Hx Diabetes Mellitus Type 2 Renal/ Medical History: Denies: Hx Peritoneal Dialysis Musculoskeletal Medical History: Reports Hx Arthritis - gout, rheumatoid arthritis Psychiatric Medical History: Reports: Hx Schizophrenia Denies: Hx Depression Past Surgical History: Reports: Hx Orthopedic Surgery - Immunizations Immunizations up to date: Yes Hx Diphtheria, Pertussis, Tetanus Vaccination: No Hx Pneumococcal Vaccination: 04/02/00 Physical Exam - Vital signs Vitals: Temp Pulse Resp BP Pulse Ox 98.0 F 92 14 145/87 H 100 03/18/18 09:14 03/18/18 09:14 03/18/18 09:14 03/18/18 09:14 03/18/18 09:14 Course - Re-evaluation Re-evalutation: Patient seen and examined vital signs reviewed. Laboratory data and imaging were ordered as appropriate for the patient's presenting symptoms and complaint, with consideration of any critical or life threatening conditions that may be associated with their obtained history and exam as noted above. Patient was treated with IV Zofran, and morphine as well as 324 mg of chewable aspirin Results were reviewed when available and demonstrated troponin slightly elevated 0.05, he has had elevated troponins in the past, but not as elevated, the rest of his blood work was grossly unremarkable, did discuss his case with the patient's tunnel elastic operator zigzag, who agreed with serial troponin testing and observation in the hospital, he stated he would see him in consult The patient was re-evaluated and was improved from a pain standpoint Evaluation was most consistent with chest pain, elevated troponin Results were discussed with the patient at this point after careful consideration I feel that that patient should be admitted to the hospital. This was discussed with the patient that it is in the best interest for their care to be admitted for further evaluation and management. Patient agreed with this plan of care. A call was placed to the admitted physician, [] who graciously accepted the patient onto their service. *Note is created using voice recognition software and may contain spelling, syntax or grammatical errors. Laboratory 03/18/18 03/18/18 03/18/18 09:42 09:42 09:42 WBC 10.0 RBC 5.10 Hgb 15.0 Hct 44.8 MCV 88 MCH 29.4 MCHC 33.6 RDW 15.3 H Plt Count 393 Seg Neutrophils % 70.3 Lymphocytes % 19.1 Monocytes % 6.7 Eosinophils % 2.9 Basophils % 1.0 Absolute Neutrophils 7.1 Absolute Lymphocytes 1.9 Absolute Monocytes 0.7 Absolute Eosinophils 0.3 Absolute Basophils 0.1 Sodium 142.0 Potassium 4.2 Chloride 103 Carbon Dioxide 26 Anion Gap 13 BUN 14 Creatinine 1.23 Est GFR ( Amer) > 60 Est GFR (Non-Af Amer) > 60 Glucose 230 H Calcium 9.9 Total Bilirubin 0.5 Direct Bilirubin 0.3 Neonat Total Bilirubin Not Reportable Neonat Direct Bilirubin Not Reportable Neonat Indirect Bili Not Reportable AST 44 ALT 28 Alkaline Phosphatase 115 Troponin I 0.050 Total Protein 8.4 H Albumin 4.8 Chest X-Ray 03/18/18 09:45 IMPRESSION: NO ACUTE RADIOGRAPHIC FINDING IN THE CHEST. - Vital Signs Vital signs: Temp Pulse Resp BP Pulse Ox 98.1 F 84 16 138/81 H 99 03/18/18 15:11 03/18/18 15:11 03/18/18 15:11 03/18/18 15:11 03/18/18 15:11 - Laboratory Result Diagrams: 03/18/18 09:42 03/18/18 09:42 Laboratory results interpreted by me: 03/18/18 03/18/18 09:42 09:42 RDW 15.3 H Glucose 230 H Total Protein 8.4 H - EKG Interpretation by Me Additional EKG results interpreted by me: EKG is sinus rhythm with a ventricular rate of 89 bpm, normal axis, normal intervals, no evidence of acute ischemia on this EKG, no ST changes, this is compared with prior EKG from 05/29/2016, without significant change. Discharge - Discharge Clinical Impression: Elevated troponin Chest pain Qualifiers: Chest pain type: unspecified Qualified Code(s): R07.9 - Chest pain, unspecified Condition: Stable Disposition: ADMITTED OBSERVATION Admitting Provider: Hospitalist - Dr. Pearson Unit Admitted: Telemetry
[2018-03-18] MEDS ORDERED: MORPHINE SULFATE 10 MG/ML INJ IV ONE (09:57)
[2018-03-18] MEDS ORDERED: ONDANSETRON HCL INJ/PF 4 MG/2 ML SDV IV ONE (09:57)
[2018-03-18 09:58] LABS: ABSOLUTE BASOPHILS # (AUTO) 0.1 10^3/uL (0.0-0.2); ABSOLUTE EOSINOPHILS # (AUTO) 0.3 10^3/uL (0.0-0.6); ABSOLUTE LYMPHOCYTES (AUTO) 1.9 10^3/uL (0.5-4.7); ABSOLUTE MONOCYTES (AUTO) 0.7 10^3/uL (0.1-1.4); ABSOLUTE NEUT (AUTO) 7.1 10^3/uL (1.7-8.2); EOSINOPHILS % (AUTO) 2.9 % (0-6); HEMATOCRIT 44.8 % (37.9-51.0); LYMPHOCYTES % (AUTO) 19.1 % (13-45); MEAN CORPUSCULAR HEMOGLOBIN 29.4 pg (27.0-33.4); MEAN CORPUSCULAR HGB CONC 33.6 g/dL (32.0-36.0); MEAN CORPUSCULAR VOLUME 88 fl (80-97); MONOCYTES % (AUTO) 6.7 % (3-13); PLATELET COUNT 393 10^3/uL (150-450); RED CELL DISTRIBUTION WIDTH 15.3 % (11.5-14.0); SEGMENTED NEUTROPHILS % (AUTO) 70.3 % (42-78); TOTAL CELLS COUNTED % (AUTO) 100 %
[2018-03-18 10:30] LABS: ALANINE AMINOTRANSFERASE 28 U/L (21-72); ALBUMIN 4.8 g/dL (3.5-5.0); ALKALINE PHOSPHATASE 115 U/L (38-126); ANION GAP 13 (5-19); ASPARTATE AMINO TRANSFERASE 44 U/L (17-59); BILIRUBIN,DIRECT 0.3 mg/dL (0.0-0.4); BILIRUBIN,TOTAL 0.5 mg/dL (0.2-1.3); BLOOD UREA NITROGEN 14 mg/dL (7-20); CALCIUM 9.9 mg/dL (8.4-10.2); CARBON DIOXIDE 26 mmol/L (22-30); CHLORIDE 103 mmol/L (98-107); GLUCOSE 230 mg/dL (75-110); POTASSIUM 4.2 mmol/L (3.6-5.0); TOTAL PROTEIN 8.4 g/dL (6.3-8.2)
--- NOTE | 2018-03-18 10:33 | RADIOLOGY REPORT (SQ) ---
EXAM DESCRIPTION: CHEST SINGLE VIEW COMPLETED DATE/TIME: 03/18/2018 10:16 am REASON FOR STUDY: chest pain COMPARISON: Chest films 05/21/2012, 01/21/2013, 02/08/2015, 05/29/2016 EXAM PARAMETERS: NUMBER OF VIEWS: One view. TECHNIQUE: Single frontal radiographic view of the chest acquired. RADIATION DOSE: NA LIMITATIONS: None. FINDINGS: LUNGS AND PLEURA: No opacities, masses or pneumothorax. No pleural effusion. MEDIASTINUM AND HILAR STRUCTURES: No masses. Contour normal. HEART AND VASCULAR STRUCTURES: Heart normal in size. Normal vasculature. BONES: No acute findings. HARDWARE: None in the chest. OTHER: No other significant finding. IMPRESSION: NO ACUTE RADIOGRAPHIC FINDING IN THE CHEST. TECHNICAL DOCUMENTATION: JOB ID: [id number] [employer]- All Rights Reserved Reading location - IP/workstation name: [email or web address]
[2018-03-18] MEDS ORDERED: ASPIRIN 81 MG TABLET, CHEWABLE PO ONE (10:57)
[2018-03-18] MEDS ORDERED: GLUCAGON,HUMAN RECOMB 1 MG INJ IM PRN (11:41)
[2018-03-18] MEDS ORDERED: DEXTROSE 50%-WATER 25 GM/50 ML DISP.SYRIN IV PRN ×2 (11:41)
[2018-03-18] MEDS ORDERED: DEXTROSE 40% GEL 15 GM TUBE PO PRN ×2 (11:41)
[2018-03-18] MEDS ORDERED: INSULIN REG, HUMAN 100 UNIT/ML 3 ML VIAL (PYX) SUBCUT PRN (11:41)
[2018-03-18] MEDS ORDERED: NITROGLYCERIN 0.4 MG/TAB 25 TAB/BOTTLE SL PRN (11:47)
--- NOTE | 2018-03-18 12:09 | PDOC H&P ---
History of Present Illness Admission Date/PCP: 03/18/18 11:14 Patient complains of: Chest pain History of Present Illness: MATA NICOLE is a 42 year old male with history of chest pain, hypertension, diabetes mellitus, gout, rheumatoid arthritis, hyperlipidemia, came to the emergency room with complaints of severe chest pain since yesterday. According to the patient it is a left-sided chest pain lasted all day all night yesterday is described the pain as a jackhammer pain and chest pain with gotten worse today so he decided to came to the emergency room for further evaluation. He denies any shortness of breath, sweating, dizziness, nausea vomiting, but complaining of headaches. Denies any radiation of the pain to the shoulder or jaw bone or to the back. Patient said he took aspirin at home without any help. Emergency room EKG was done compared to the previous EKG as per the ER physician looks the same. Troponin is 0.05. Dr. Siu was consulted and he is agreed to see the patient and requested hospitalist to admit the patient. He went to see the patient patient is complaining of pain of 9 x 10. Emergency room patient got 4 mg of IV morphine prior to my examination. He is given the history of similar chest pains on previous admissions. Had a stress test done before but he denied any history of cardiac cath. And anxiety and stressful events at home. Explained the plan of care to the patient and he agreed to stay in the hospital. She denies any respiratory symptoms like cough,cold ,fever. Past Medical History Cardiac Medical History: Reports: Hypertension Endocrine Medical History: Reports: Diabetes Mellitus Type 2 Musculoskeltal Medical History: Reports: Arthritis - gout, rheumatoid arthritis , Gout Psychiatric Medical History: Denies: Depression Hematology: Denies: Anemia Past Surgical History Past Surgical History: Reports: Orthopedic Surgery Social History Smoking Status: Current Every Day Smoker Frequency of Alcohol Use: None Hx Recreational Drug Use: No Drugs: None Hx Prescription Drug Abuse: No Family History Family History: Reviewed & Not Pertinent Parental Family History Reviewed: Yes Children Family History Reviewed: Yes Sibling(s) Family History Reviewed.: Yes Medication/Allergy Home Medications: Allopurinol [Zyloprim 100 mg Tablet] 100 mg PO TID 05/29/16 Colchicine [Colchicine 0.6 mg Tablet] 0.6 mg PO QAM 05/29/16 Gabapentin 100 mg PO Q8 05/29/16 Insulin Glargine,Hum.rec.anlog [Lantus] 50 units SQ QHS 05/29/16 Insulin Lispro [Humalog] 20 unit SQ LUIS ANTONIO 05/29/16 Lisinopril/Hydrochlorothiazide [Lisinopril-Hctz 20-12.5 mg Tab] 1 tab PO Q12 Metformin HCl [Glucophage] 1,000 mg PO BIDACBS 05/29/16 Aspirin [Ecotrin 81 mg EC Tablet] 81 mg PO DAILY #90 tabec 05/31/16 Atorvastatin Calcium [Lipitor 40 mg Tablet] 40 mg PO QHS #30 tablet 05/31/16 Docusate Sodium [Colace 100 mg Capsule] 100 mg PO BID #60 capsule 05/31/16 Omeprazole Magnesium [Prilosec Otc] 20 mg PO BID #60 tablet. 05/31/16 Tramadol HCl [Ultram 50 mg Tablet] 50 mg PO Q6HP PRN #10 tablet 05/31/16 Allergies/Adverse Reactions: IVP DYE Allergy (Uncoded 03/18/18 09:11) Review of Systems Constitutional: PRESENT: headache(s). ABSENT: fever(s), weight gain, weight loss Cardiovascular: PRESENT: chest pain. ABSENT: dyspnea on exertion, edema, orthropnea Respiratory: ABSENT: dyspnea, hemoptysis, sputum Gastrointestinal: ABSENT: nausea, vomiting Neurological: PRESENT: as per HPI Psychiatric: ABSENT: anxiety, depression, homidical ideation, suicidal ideation Physical Exam Vital Signs: Temp Pulse Resp BP Pulse Ox 98.0 F 92 15 141/93 H 99 03/18/18 09:14 03/18/18 09:14 03/18/18 11:01 03/18/18 11:01 03/18/18 11:01 General appearance: PRESENT: no acute distress Head exam: PRESENT: atraumatic Eye exam: PRESENT: PERRLA Neck exam: ABSENT: carotid bruit, JVD, lymphadenopathy, thyromegaly Respiratory exam: PRESENT: clear to auscultation rimma. ABSENT: rales, rhonchi, wheezes Cardiovascular exam: PRESENT: RRR. ABSENT: diastolic murmur, rubs, systolic murmur GI/Abdominal exam: PRESENT: normal bowel sounds, soft. ABSENT: distended, guarding, mass, organolmegaly, rebound, tenderness Neurological exam: PRESENT: alert, awake, oriented to person, oriented to place , oriented to time, oriented to situation, CN II-XII grossly intact. ABSENT: motor sensory deficit Psychiatric exam: PRESENT: appropriate affect, normal mood. ABSENT: homicidal ideation, suicidal ideation Results Impressions: Chest X-Ray 03/18/18 09:45 IMPRESSION: NO ACUTE RADIOGRAPHIC FINDING IN THE CHEST. Assessment & Plan - Diagnosis (1) Chest pain Qualifiers: Chest pain type: unspecified Qualified Code(s): R07.9 - Chest pain, unspecified Is this a current diagnosis for this admission?: Yes Plan: 03/18/2018-plan is to admit the patient in the telemetry under observation. Cardiology consult was requested. Echocardiogram was requested. Cardiac enzymes x3 was requested. Serial EKGs were requested. Placement was placed on nitroglycerin 0.5 mg every 5 minutes as needed for chest pains. Started on aspirin 81 mg p.o. daily, Lovenox 40 mg subcu daily, atorvastatin 40 mg p.o. nightly, lipid panel was requested for tomorrow. Request for a pharmacological stress test was placed. Was placed on oxygen 2 L nasal cannula. For the pain he was placed on morphine 2 mg IV every [address] Siu notified me patient had a stress test was done last month which was negative and also had echocardiogram in October which was left ventricular hypertrophy. plan to canceled the stress test . Latest her troponin is 0.05. CPK still pending. (2) Diabetes Qualifiers: Diabetes mellitus type: type 2 Diabetes mellitus retirement insulin use: with termite treater helper use Diabetes mellitus complication status: with unspecified complications Qualified Code(s): E11.8 - Type 2 diabetes mellitus with unspecified complications Is this a current diagnosis for this admission?: Yes Plan: 03/18/2018 patient has history of diabetes mellitus type 2. He is on metformin thousand milligrams twice a day, and Lantus 50 units at bedtime. We are going to resume his medications and I am going to check hemoglobin A1c tomorrow and place him on sliding scale. Is also saying he is takes Humalog 20-30 units prior to meals based on the blood sugars. (3) Hypertension Qualifiers: Hypertension type: essential hypertension Qualified Code(s): I10 - Essential (primary) hypertension Is this a current diagnosis for this admission?: Yes Plan: 03/18/2018 patient is given the history of high blood pressure. He is on lisinopril/hydrochlorothiazide at home. He is seeing he is also on amlodipine at home. Test blood pressure is 141/93. Be going to resume his home medications. Patient saying he is also on amlodipine and metoprolol but I did not see these medications in the home medications list. We will go to add amlodipine 5 mg to the present medications. (4) Gout Is this a current diagnosis for this admission?: Yes Plan: 03/18/2018 patient is given the history of gout according to him he is on allopurinol and colchicine at home. We will resume his home medications. - Time Time Spent: 30 to 50 Minutes Smoking Cessation Education: over 10 minutes Medications reviewed and adjusted accordingly: Yes Anticipated discharge: Home
--- NOTE | 2018-03-18 13:26 | EKG REPORT ---
SEVERITY:- ABNORMAL ECG - POSSIBLE ATRIAL ARRHYTHMIA, A-RATE 201 BORDERLINE T ABNORMALITIES, INFERIOR LEADS : Confirmed by: Navdeep Arriaza MD 18-Mar-2018 13:25:51
[2018-03-18] MEDS: ENOXAPARIN SODIUM INJ 40 MG/0.4 ML DISP.SYRIN SUBCUT SCH (16:23)
[2018-03-18] MEDS: ALLOPURINOL 100 MG TABLET PO SCH ×2 (17:15→17:37)
[2018-03-18] MEDS: GABAPENTIN 100 MG CAPSULE PO SCH ×2 (17:15→22:41)
[2018-03-18] MEDS: DOCUSATE SODIUM 100 MG CAPSULE PO SCH (17:16)
[2018-03-18] MEDS: MORPHINE SULFATE 10 MG/ML INJ IV PRN (18:34)
--- NOTE | 2018-03-18 21:36 | PDOC PROGRESS REPORT ---
Subjective Progress Note for:: 03/18/18 Subjective:: Patient came to the emergency department with chest pain. Patient described the chest pain as sharp associated with some shortness of breath. The chest pain tends to increase on taking a deep breath. Patient did have a recent stress test which was negative for ischemia. Patient claims he is being treated for sleep apnea. Reason For Visit: CHEST PAIN Physical Exam Vital Signs: Temp Pulse Resp BP Pulse Ox 98.2 F 80 16 122/76 98 03/18/18 16:57 03/18/18 16:57 03/18/18 16:57 03/18/18 16:57 03/18/18 16:57 Intake & Output 03/17/18 03/18/18 03/19/18 06:59 06:59 06:59 Weight 88.3 kg Exam: GENERAL: well-nourished and in no acute distress. Alert and oriented x3 HEAD: Atraumatic, normocephalic. EYES: DILLON, sclera anicteric, conjunctiva are normal. ENT: Moist mucous membranes. No oral ulcerations or bleeding gums noted. No obvious ear, nose or throat abnormalities noted. NECK: supple without lymphadenopathy. Trachea is central. No cervical or axillary lymphadenopathy noted. Carotids are 2+, JVD WNL LUNGS: Breath sounds clear bilaterally. No wheezes rales or rhonchi noted. No significant dullness noted on percussion. CHEST: Palpation of the chest wall shows significant chest wall tenderness. 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 ABDOMEN: Soft, no significant tenderness appreciated, normoactive bowel sounds. No guarding, no rebound. No rigidity noted . No masses appreciated. EXTREMITIES: Pedal pulses are 1-2+, no calf tenderness noted. No clubbing or cyanosis. negative pedal edema noted NEUROLOGICAL: Focused neurological exam showed no significant neurologic deficit. Normal speech, no focal weakness appreciated. PSYCH: Normal mood, normal affect. Judgment and insight within normal limits. SKIN: No significant ecchymosis, skin is noted to be warm. MUSCULOSKELETAL EXAM: No significant acute joint swelling noted. Results Laboratory Results: 03/18/18 03/18/18 16:02 16:02 Creatine Kinase 102 Troponin I 0.036 EKG Comments: Sinus rhythm no acute ST-T wave changes are noted. Impressions: Chest X-Ray 03/18/18 09:45 IMPRESSION: NO ACUTE RADIOGRAPHIC FINDING IN THE CHEST. Assessment & Plan - Diagnosis (1) Chest pain Qualifiers: Chest pain type: unspecified Qualified Code(s): R07.9 - Chest pain, unspecified Is this a current diagnosis for this admission?: Yes (2) Elevated troponin Is this a current diagnosis for this admission?: Yes (3) Hypertension Qualifiers: Hypertension type: essential hypertension Qualified Code(s): I10 - Essential (primary) hypertension Is this a current diagnosis for this admission?: Yes (4) Diabetes Qualifiers: Diabetes mellitus type: type 2 Diabetes mellitus half-way insulin use: with half-way use Diabetes mellitus complication status: with unspecified complications Qualified Code(s): E11.8 - Type 2 diabetes mellitus with unspecified complications Is this a current diagnosis for this admission?: Yes (5) Dyspnea Qualifiers: Dyspnea type: dyspnea on exertion Qualified Code(s): R06.09 - Other forms of dyspnea Is this a current diagnosis for this admission?: Yes - Notes Notes: Patient's presents with chest pain which is noted to be atypical. Patient does have cardiac risk factors however. A recent nuclear stress test was negative. At this point, will schedule patient for a CTA of the chest especially in view of negative EKG and also a negative stress test. Will order a 2D echo for tomorrow to rule out any pericardial disease as cause of chest pain since the chest pain is pleuritic. Have also scheduled patient for a CTA of the chest. In the meantime patient has been empirically started on Tylenol and also proton pump inhibitor. As regards to diabetes and hypertension, these are being well managed by the hospitalist. Will check a lipid panel in the morning for further risk assessment. As usual I thank the hospitalist very much for involving in the care of this gentleman. - Time Time with patient: Greater than 35 minutes - CODE STATUS was discussed, patient remains full code. Surrogate decision-maker unchanged. Multiple medical problems were addressed. More than 50% of the time spent coordinating care, discussing management plans with involved caregivers. Management plans discussed with involved personnels. Medical decision making was of moderate to high complexity, patient's has multiple comorbidities. Medications reviewed and adjusted accordingly: Yes
[2018-03-18] MEDS ORDERED: LANSOPRAZOLE 30 MG TAB.RAP.DR PO ONE (21:45)
[2018-03-18] MEDS ORDERED: ACETAMINOPHEN 325 MG TABLET PO ONE (21:45)
[2018-03-18] MEDS ORDERED: ATORVASTATIN CALCIUM 40 MG TABLET PO SCH (22:00)
[2018-03-18] MEDS ORDERED: (PENDING PHARMACY ID) (Lisinopril/Hydrochlorothiazide [Lisinopril-Hctz 20-12.5 Mg Tab] 1 T PO SCH (22:00)
[2018-03-18] MEDS ORDERED: INSULIN GLARGINE,HUM.REC.ANLOG 300 UNIT/3 ML INSULN.PEN SUBCUT SCH (22:00)
[2018-03-18] MEDS ORDERED: INSULIN GLARGINE,HUM.REC.ANLOG 1,000 UNIT/10 ML UNIT SUBCUT SCH (22:00)
[2018-03-18 22:26] LABS: CREATINE KINASE MB 0.55 ng/mL (<4.55); TROPONIN I 0.037 ng/mL
[2018-03-18] MEDS: LISINOPRIL 10 MG TABLET PO SCH (22:39)
[2018-03-18] MEDS: HYDROCHLOROTHIAZIDE 12.5 MG TABLET PO SCH (22:40)
[2018-03-18] MEDS: METOPROLOL SUCCINATE 25 MG TAB.SR.24H PO SCH (22:40)
[2018-03-18] MEDS: FAMOTIDINE 20 MG TABLET PO SCH (22:41)
[2018-03-19 03:49] LABS: ABSOLUTE BASOPHILS # (AUTO) 0.1 10^3/uL (0.0-0.2); ABSOLUTE EOSINOPHILS # (AUTO) 0.3 10^3/uL (0.0-0.6); ABSOLUTE LYMPHOCYTES (AUTO) 2.6 10^3/uL (0.5-4.7); ABSOLUTE MONOCYTES (AUTO) 0.7 10^3/uL (0.1-1.4); ABSOLUTE NEUT (AUTO) 3.7 10^3/uL (1.7-8.2); BASOPHILS % (AUTO) 1.4 % (0-2); EOSINOPHILS % (AUTO) 3.6 % (0-6); HEMATOCRIT 37.4 % (37.9-51.0); MEAN CORPUSCULAR HEMOGLOBIN 28.7 pg (27.0-33.4); MEAN CORPUSCULAR HGB CONC 33.2 g/dL (32.0-36.0); MEAN CORPUSCULAR VOLUME 86 fl (80-97); MONOCYTES % (AUTO) 9.6 % (3-13); PLATELET COUNT 330 10^3/uL (150-450); RED BLOOD COUNT 4.33 10^6/uL (4.35-5.55); SEGMENTED NEUTROPHILS % (AUTO) 50.4 % (42-78); TOTAL CELLS COUNTED % (AUTO) 100 %; WHITE BLOOD COUNT 7.4 10^3/uL (4.0-10.5)
[2018-03-19 03:52] LABS: HEMOGLOBIN 12.4 g/dL (13.5-17.0)
[2018-03-19 04:03] LABS: ALANINE AMINOTRANSFERASE 25 U/L (21-72); ALBUMIN 3.2 g/dL (3.5-5.0); ALKALINE PHOSPHATASE 74 U/L (38-126); ANION GAP 7 (5-19); ASPARTATE AMINO TRANSFERASE 24 U/L (17-59); BILIRUBIN,DIRECT 0.3 mg/dL (0.0-0.4); BILIRUBIN,TOTAL 0.4 mg/dL (0.2-1.3); BLOOD UREA NITROGEN 12 mg/dL (7-20); CALCIUM 9.3 mg/dL (8.4-10.2); CARBON DIOXIDE 27 mmol/L (22-30); CHLORIDE 108 mmol/L (98-107); CHOLESTEROL 141.31 mg/dL (0-200); CREATINE KINASE 78 U/L (55-170); GLUCOSE 95 mg/dL (75-110); SODIUM 141.9 mmol/L (137-145); TOTAL PROTEIN 5.9 g/dL (6.3-8.2); TRIGLYCERIDES 129 mg/dL (<150)
[2018-03-19 04:14] LABS: DIRECT LDL 95 mg/dL (<100)
[2018-03-19 04:21] LABS: CREATINE KINASE MB 0.44 ng/mL (<4.55); TROPONIN I 0.038 ng/mL
[2018-03-19] MEDS: GABAPENTIN 100 MG CAPSULE PO SCH ×2 (05:27→14:06)
--- NOTE | 2018-03-19 07:43 | EKG REPORT ---
SEVERITY:- NORMAL ECG - SINUS RHYTHM : Confirmed by: Navdeep Arriaza MD 19-Mar-2018 07:42:54
[2018-03-19] MEDS ORDERED: COLCHICINE 0.6 MG TABLET PO SCH (08:00)
[2018-03-19] MEDS: HYDROCHLOROTHIAZIDE 12.5 MG TABLET PO SCH (09:17)
[2018-03-19] MEDS: ENOXAPARIN SODIUM INJ 40 MG/0.4 ML DISP.SYRIN SUBCUT SCH (09:17)
[2018-03-19] MEDS: LISINOPRIL 10 MG TABLET PO SCH (09:17)
[2018-03-19] MEDS: DOCUSATE SODIUM 100 MG CAPSULE PO SCH (09:21)
[2018-03-19] MEDS: ALLOPURINOL 100 MG TABLET PO SCH ×2 (09:21→14:06)
[2018-03-19] MEDS: FAMOTIDINE 20 MG TABLET PO SCH (09:21)
[2018-03-19] MEDS: METOPROLOL SUCCINATE 25 MG TAB.SR.24H PO SCH (09:21)
[2018-03-19] MEDS: MORPHINE SULFATE 10 MG/ML INJ IV PRN (09:29)
[2018-03-19] MEDS ORDERED: AMLODIPINE BESYLATE 5 MG TABLET PO SCH (10:00)
[2018-03-19] MEDS ORDERED: ASPIRIN 81 MG TABLET, ENT COATED PO SCH (10:00)
[2018-03-19] MEDS ORDERED: FAMOTIDINE INJ/PF 20 MG/2 ML SDV IV PRN (10:45)
[2018-03-19] MEDS ORDERED: DIPHENHYDRAMINE HCL 50 MG/ML VIAL IV PRN (10:45)
[2018-03-19] MEDS ORDERED: METHYLPREDNISOLONE INJ 125 MG/2 ML SDV IV PRN (10:45)
--- NOTE | 2018-03-19 12:57 | XCELERA REPORT ---
[address] [address] Transthoracic Echocardiogram Report Name: MATA NICOLE Age: 42 yrs Gender: Male : 1975 Patient Status: Inpatient Patient Location: [address] [place] [address] Study Date: 03/19/2018 10:44 AM Procedure: A complete two-dimensional transthoracic echocardiogram was performed (2D, M-mode, spectral and color flow Doppler). The study was technically adequate with some images being suboptimal in quality. Reason For Study: eval pleuritic chest pain Ordering Physician: CARLA BUTT Performed By: Jessica Archer Interpretation Summary The left ventricle has normal cavity size with globally normal systolic function. Estimated left ventricular ejection fraction is 55%. The left ventricle is grossly normal size. There is normal left ventricular wall thickness. Doppler measurements suggest normal left ventricular diastolic function Wall motion cannot be accurately commented on, but no definite regional wall motion abnormalities noted. The right ventricular systolic function is normal. The left atrial size is normal. The right atrium is normal in size There is no mitral regurgitation noted. There is no mitral valve stenosis. There is no aortic valve stenosis No aortic regurgitation is present. No tricuspid regurgitation. There is no tricuspid stenosis. The aortic root is not well visualized but is probably normal size. The inferior vena cava appeared normal and decreased > 50% with respiration (RAP 5-10 mmHg) Minimal pericardial effusion. MMode/2D Measurements & Calculations RVDd: 3.1 cm LVIDd: 4.7 cm FS: 30.9 % Ao root diam: 3.2 cm IVSd: 1.0 cm LVIDs: 3.2 cm EDV(Teich): 102.1 ml Ao root area: 8.0 cm2 LVPWd: 1.1 cm ESV(Teich): 42.3 ml EF(Teich): 58.5 % Doppler Measurements & Calculations MV E max adriana: MV dec slope: Ao V2 max: LV V1 max P.3 cm/sec 96.4 cm/sec 2.0 mmHg MV A max adriana: 573.4 cm/sec2 Ao max PG: LV V1 max: 45.6 cm/sec MV dec time: 0.15 sec 3.7 mmHg 70.9 cm/sec MV E/A: 1.8 PA V2 max: 82.8 cm/sec PA max P.7 mmHg Left Ventricle The left ventricle is grossly normal size. There is normal left ventricular wall thickness. The left ventricle has normal cavity size with globally normal systolic function. Estimated left ventricular ejection fraction is 55%. Doppler measurements suggest normal left ventricular diastolic function. Wall motion cannot be accurately commented on, but no definite regional wall motion abnormalities noted. Right Ventricle Borderline right ventricular enlargement. There is normal right ventricular wall thickness. The right ventricular systolic function is normal. Atria The right atrium is normal in size. The left atrial size is normal. Interarterial septum not well visualized and not well dopplered. Cannot comment on ASD/PFO presence. Mitral Valve The mitral valve is grossly normal. There is no mitral valve stenosis. There is no mitral regurgitation noted. Aortic Valve The aortic valve is grossly normal. There is no aortic valve stenosis. No aortic regurgitation is present. Tricuspid Valve The tricuspid valve is not well visualized, but is grossly normal. There is no tricuspid stenosis. No tricuspid regurgitation. Pulmonic Valve The pulmonic valve is not well visualized. Great Vessels The aortic root is not well visualized but is probably normal size. The inferior vena cava appeared normal and decreased > 50% with respiration (RAP 5-10 mmHg). Effusions Minimal pericardial effusion. : CARLA BUTT > Calra Butt
[2018-03-19] MEDS ORDERED: ISOSORBIDE MONONITRATE 30 MG TAB.ER.24H PO SCH (13:30)
--- NOTE | 2018-03-19 14:27 | RADIOLOGY REPORT (SQ) ---
EXAM DESCRIPTION: CTA CHEST COMPLETED DATE/TIME: 03/19/2018 12:32 pm REASON FOR STUDY: Eval Pleuritic Chest Pain R07.9 CHEST PAIN, UNSPECIFIED COMPARISON: CT angio chest 02/03/2011, 08/26/2010 Chest film 03/18/2018 TECHNIQUE: CT scan of the chest performed using helical scanning technique with dynamic intravenous contrast injection. Images reviewed with lung, soft tissue and bone windows. Reconstructed coronal and sagittal MPR images reviewed. Additional 3 dimensional post-processing performed to develop Maximal Intensity Projection images (LA P). All images stored on PACS. All CT scanners at this facility use dose modulation, iterative reconstruction, and/or weight based d osing when appropriate to reduce radiation dose to as low as reasonably achievable (ALARA). [facility]: Dose Right [facility]: CareDose [facility]: Dose Right [facility]: Teradose 4D [facility]: Lolay CONTRAST TYPE AND DOSE: contrast/concentration: Isovue 350.00 mg/ml; Total Contrast Delivered: 73.0 ml; Total Saline Delivered: 90.0 ml Contrast bolus optimized for the pulmonary arteries and thoracic aorta. Patient was pre-medicated for iodine allergy with IV steroid prep. No immediate complications post i njection. RENAL FUNCTION: GFR > 60. RADIATION DOSE: CT Rad equipment meets quality standard of care and radiation dose reduction techniq ues were employed. CTDIvol: 13.2 - 15.5 mGy. DLP: 601 mGy-cm. . LIMITATIONS: None. FINDINGS: LUNGS AND PLEURA: No masses, infiltrates, or pneumothorax. No pleural effusions or pleura l calcifications. AORTA AND GREAT VESSELS: No aneurysm. No thoracic aortic dissection HEART: No pericardial effusion. No significant coronary artery calcifications. PULMONARY ARTERIES: No emboli visualized in the main pulmonary arteries or the segmental branches. HILAR AND MEDIASTINAL STRUCTURES: No identified masses or abnormal nodes. HARDWARE: None in the chest. UPPER ABDOMEN: No significant findings. Limited exam. THYROID AND OTHER SOFT TISSUES: No masses. No adenopathy. Bilateral gynecomastia is present. BONES: No acute or significant finding. 3D MIPS: Confirm above findings. OTHER: No other significant finding. IMPRESSION: NORMAL CTA OF THE CHEST. NO PULMONARY EMBOLI. COMMENT: Quality ID # [id number]: Final reports with documentation of one or more dose reduction techniques (e.g., Automated exposure control, adjustment of the mA and/or kV according to patient size, use of iterative reconstruction technique) TECHNICAL DOCUMENTATION: JOB ID: [id number] [employer]- All Rights Reserved Reading location - IP/workstation name: [email or web address]
[2018-03-19 16:09] VITALS: BP 116/75
--- NOTE | 2018-03-19 23:30 | PDOC PROGRESS REPORT ---
Subjective Progress Note for:: 03/19/18 Subjective:: Patient claims improved chest pains. This happened after patient received IV Solumedrol. Patient described the chest pain as sharp associated with some shortness of breath. The chest pain tends to increase on taking a deep breath and also tends to happen when he exhales.. Patient did have a recent stress test which was negative for ischemia. Patient claims he is being treated for sleep apnea. Reason For Visit: CHEST PAIN Physical Exam Vital Signs: Temp Pulse Resp BP Pulse Ox 98.5 F 76 16 122/76 100 03/19/18 15:59 03/19/18 15:59 03/19/18 15:59 03/19/18 15:59 03/19/18 15:59 Intake & Output 03/18/18 03/19/18 03/20/18 06:59 06:59 06:59 Intake Total 799 784 Balance 799 784 Weight 88.3 kg General appearance: PRESENT: no acute distress, well-developed, well-nourished Head exam: PRESENT: atraumatic, normocephalic Eye exam: PRESENT: conjunctiva pink, EOMI, PERRLA. ABSENT: scleral icterus Ear exam: PRESENT: normal external ear exam Mouth exam: PRESENT: moist, tongue midline Neck exam: ABSENT: carotid bruit, JVD, lymphadenopathy, thyromegaly Respiratory exam: PRESENT: clear to auscultation rimma. ABSENT: rales, rhonchi, wheezes Cardiovascular exam: PRESENT: RRR. ABSENT: diastolic murmur, rubs, systolic murmur Pulses: PRESENT: normal dorsalis pedis pul Vascular exam: PRESENT: normal capillary refill GI/Abdominal exam: PRESENT: normal bowel sounds, soft. ABSENT: distended, guarding, mass, organolmegaly, rebound, tenderness Rectal exam: PRESENT: deferred Extremities exam: PRESENT: full ROM. ABSENT: calf tenderness, clubbing, pedal edema Neurological exam: PRESENT: alert, awake, oriented to person, oriented to place , oriented to time, oriented to situation, CN II-XII grossly intact. ABSENT: motor sensory deficit Psychiatric exam: PRESENT: appropriate affect, normal mood. ABSENT: homicidal ideation, suicidal ideation Skin exam: PRESENT: dry, intact, warm. ABSENT: cyanosis, rash Results Laboratory Results: 03/19/18 03:37 03/19/18 03:37 03/19/18 03/19/18 03:37 03:37 WBC 7.4 RBC 4.33 L Hgb 12.4 L D Hct 37.4 L MCV 86 MCH 28.7 MCHC 33.2 RDW 15.0 H Plt Count 330 Seg Neutrophils % 50.4 Lymphocytes % 35.0 Monocytes % 9.6 Eosinophils % 3.6 Basophils % 1.4 Absolute Neutrophils 3.7 Absolute Lymphocytes 2.6 Absolute Monocytes 0.7 Absolute Eosinophils 0.3 Absolute Basophils 0.1 Sodium 141.9 Potassium 4.0 Chloride 108 H Carbon Dioxide 27 Anion Gap 7 BUN 12 Creatinine 1.15 Est GFR ( Amer) > 60 Est GFR (Non-Af Amer) > 60 Glucose 95 Calcium 9.3 Total Bilirubin 0.4 AST 24 ALT 25 Alkaline Phosphatase 74 Total Protein 5.9 L Albumin 3.2 L Triglycerides 129 Cholesterol 141.31 LDL Cholesterol Direct 95 VLDL Cholesterol 26.0 HDL Cholesterol 38 L 03/18/18 03/18/18 03/18/18 16:02 16:02 21:45 Creatine Kinase 102 89 CK-MB (CK-2) Troponin I 0.036 NT-Pro-B Natriuret Pep 03/18/18 03/19/18 03/19/18 21:45 03:37 03:37 Creatine Kinase 78 CK-MB (CK-2) 0.55 0.44 Troponin I 0.037 0.038 NT-Pro-B Natriuret Pep 191 H Impressions: Chest/Abdomen CTA 03/18/18 00:00 IMPRESSION: NORMAL CTA OF THE CHEST. NO PULMONARY EMBOLI. Chest X-Ray 03/18/18 09:45 IMPRESSION: NO ACUTE RADIOGRAPHIC FINDING IN THE CHEST. Assessment & Plan - Diagnosis (1) Chest pain Qualifiers: Chest pain type: unspecified Qualified Code(s): R07.9 - Chest pain, unspecified Is this a current diagnosis for this admission?: Yes (2) Elevated troponin Is this a current diagnosis for this admission?: Yes (3) Hypertension Qualifiers: Hypertension type: essential hypertension Qualified Code(s): I10 - Essential (primary) hypertension Is this a current diagnosis for this admission?: Yes (4) Diabetes Qualifiers: Diabetes mellitus type: type 2 Diabetes mellitus residential insulin use: with residential use Diabetes mellitus complication status: with unspecified complications Qualified Code(s): E11.8 - Type 2 diabetes mellitus with unspecified complications Is this a current diagnosis for this admission?: Yes (5) Dyspnea Qualifiers: Dyspnea type: dyspnea on exertion Qualified Code(s): R06.09 - Other forms of dyspnea Is this a current diagnosis for this admission?: Yes
[2018-03-20] MEDS ORDERED: INSULIN LISPRO 100 UNIT/ML 3 ML VIAL SUBCUT SCH (08:00)
--- NOTE | 2018-03-20 18:07 | PDOC DISCHARGE SUMMARY ---
General - Admit/Disc Date/PCP Admission Date/Primary Care Provider: 03/18/18 11:14 Discharge Date: 03/19/18 - Discharge Diagnosis (1) Chest pain Is this a current diagnosis for this admission?: Yes Summary: The patient was admitted with the report of atypical chest pain. EKG demonstrated NSR x2 Chest x-ray was benign. CTA of the chest was normal with the exception of bilateral gynecomastia. Echocardiogram revealed inferior LVEF 55%, normal LV diastolic function, and otherwise normal exam. Initial troponin was indeterminately elevated at 0.050; trended down x4. Troponin 0 0.038 at time of discharge. ProBNP normal at 191. Lipid panel was acceptable. A1c 7.4%. Patient was admitted to the medical floor on continuous cardiac telemetry. He did continue to have intermittent episodes of chest discomfort. Nursing noted that the patient was highly anxious and involved in a family conflict overnight which may have contributed to some of his discomfort. Cardiology was consulted and placed the patient on Imdur. Patient is already established with Dr. Siu. He has had a negative nuclear stress test within the last couple of months. Due to IV dye allergy, the patient was pretreated with IV Solu-Medrol; he subsequently reported an improvement in his chest discomfort. The patient's case was discussed with Dr. Siu prior to discharge; recommended to continue daily aspirin and statin therapy. Dr. Siu also asked that the patient be provided a short steroid taper to continue until his follow-up appointment scheduled for him on . The patient's reassuring evaluation/workup was discussed with both the patient and his . All questions were answered to their satisfaction. At time of discharge, the patient was asymptomatic and hemodynamically stable. He is discharged home with self-care and instructions to follow-up with his primary care provider within 1 week, keep his previously scheduled renal ultrasound, and to follow-up with Dr. Siu on . He is instructed to return to the emergency department for any concerning symptoms. (2) Diabetes Is this a current diagnosis for this admission?: Yes Summary: A1c 7.4% Dietary discretion was advised; recommend continuing his outpatient medication regiment. (3) Hypertension Is this a current diagnosis for this admission?: Yes Summary: Normotensive. The patient was provided updated prescriptions for amlodipine 5 mg daily, isosorbide 30 mg daily, lisinopril 20 mg twice daily, HCTZ 12.5 mg twice daily, and instructed to resume his Toprol-XL 50 mg twice daily and furosemide 20 mg q48 hours as needed. To follow up with his established coater brake linings, Dr. Siu, on 03/21/18. (4) Gout Is this a current diagnosis for this admission?: Yes Summary: The patient endorses a history of gout; his home medication regimen of allopurinol and colchicine were continued. - Additional Information Resuscitation Status: Full Code Discharge Diet: Cardiac, Diabetic Discharge Activity: Activity As Tolerated, Balance Activity w/Rest, Slowly Increase Activity Prescriptions: Amlodipine Besylate [Norvasc 5 mg Tablet] 5 mg PO DAILY #30 tablet Atorvastatin Calcium [Lipitor 40 mg Tablet] 40 mg PO QHS #30 tablet Famotidine [Pepcid 20 mg Tablet] 20 mg PO Q12 #60 tablet Isosorbide Mononitrate [Imdur 30 mg Tablet.er] 30 mg PO DAILY #30 tab.er.24h Prednisone [Sterapred] 5 mg PO ASDIR PRN #1 tab.ds.pk PRN Reason: Home Medications: Colchicine [Colchicine 0.6 mg Tablet] 0.6 mg PO BIDP PRN 05/29/16 Insulin Glargine,Hum.rec.anlog [Lantus] 90 units SQ QHS 05/29/16 Insulin Lispro [Humalog] 0 unit SQ .SLIDINGSCALE 05/29/16 Metformin HCl [Glucophage] 1,000 mg PO BIDACBS 05/29/16 Aspirin [Ecotrin 81 mg EC Tablet] 81 mg PO DAILY #90 tabec 05/31/16 Allopurinol [Zyloprim 300 mg Tablet] 300 mg PO DAILY 03/18/18 Dulaglutide [Trulicity] 1.5 mg SQ MOHAN@1000 03/18/18 Furosemide [Lasix 20 mg Tablet] 20 mg PO Q48H 03/18/18 Insulin Lispro [Humalog Kwikpen U-100] 30 unit SQ MEALS 03/18/18 Magnesium Oxide [Mag-Oxide] 200 mg PO DAILY 03/18/18 Metoprolol Succinate [Toprol Xl 50 mg Tab.sr] 50 mg PO BID 03/18/18 Oxycodone HCl/Acetaminophen [Percocet 5-325 mg Tablet] 1 tab PO TIDP PRN 03/18/18 Allopurinol [Zyloprim 100 mg Tablet] 100 mg PO TID tablet 03/19/18 Amlodipine Besylate [Norvasc 5 mg Tablet] 5 mg PO DAILY #30 tablet 03/19/18 Atorvastatin Calcium [Lipitor 40 mg Tablet] 40 mg PO QHS #30 tablet 03/19/18 Famotidine [Pepcid 20 mg Tablet] 20 mg PO Q12 #60 tablet 03/19/18 Gabapentin [Neurontin 100 mg Capsule] 100 mg PO Q8 capsule 03/19/18 Hydrochlorothiazide [Hydrodiuril 12.5 mg Tablet] 12.5 mg PO Q12 tablet 03/19/18 Isosorbide Mononitrate [Imdur 30 mg Tablet.er] 30 mg PO DAILY #30 tab.er.24h 03/19/18 Lisinopril [Prinivil 10 mg Tablet] 20 mg PO Q12 tablet 03/19/18 Prednisone [Sterapred] 5 mg PO ASDIR PRN #1 tab.ds.pk 03/19/18 History of Present Illness History of Present Illness: Per H&P by Dr. Pearson: MATA NICOLE is a 42 year old male with history of chest pain, hypertension, diabetes mellitus, gout, rheumatoid arthritis, hyperlipidemia, came to the emergency room with complaints of severe chest pain since yesterday. According to the patient it is a left-sided chest pain lasted all day all night yesterday is described the pain as a jackhammer pain and chest pain with gotten worse today so he decided to came to the emergency room for further evaluation. He denies any shortness of breath, sweating, dizziness, nausea vomiting, but complaining of headaches. Denies any radiation of the pain to the shoulder or jaw bone or to the back. Patient said he took aspirin at home without any help. Emergency room EKG was done compared to the previous EKG as per the ER physician looks the same. Troponin is 0.05. Dr. Siu was consulted and he is agreed to see the patient and requested hospitalist to admit the patient. He went to see the patient patient is complaining of pain of 9 x 10. Emergency room patient got 4 mg of IV morphine prior to my examination. He is given the history of similar chest pains on previous admissions. Had a stress test done before but he denied any history of cardiac cath. And anxiety and stressful events at home. Explained the plan of care to the patient and he agreed to stay in the hospital. She denies any respiratory symptoms like cough,cold ,fever. Physical Exam Vital Signs: Temp Pulse Resp BP Pulse Ox 98.5 F 76 16 122/76 100 03/19/18 15:59 03/19/18 15:59 03/19/18 15:59 03/19/18 15:59 03/19/18 15:59 Intake & Output 03/19/18 03/20/18 03/21/18 06:59 06:59 06:59 Intake Total 799 784 Balance 799 784 Weight 88.3 kg General appearance: PRESENT: no acute distress, cooperative, well-developed, well-nourished - Overweight Head exam: PRESENT: atraumatic, normocephalic Eye exam: PRESENT: conjunctiva pink, EOMI, PERRLA. ABSENT: scleral icterus Ear exam: PRESENT: normal external ear exam Mouth exam: PRESENT: moist, tongue midline Neck exam: ABSENT: carotid bruit, JVD, lymphadenopathy, thyromegaly Respiratory exam: PRESENT: clear to auscultation rimma, symmetrical, unlabored. ABSENT: rales, rhonchi, wheezes Cardiovascular exam: PRESENT: RRR, +S1, +S2. ABSENT: diastolic murmur, rubs, systolic murmur Pulses: PRESENT: normal dorsalis pedis pul Vascular exam: PRESENT: normal capillary refill GI/Abdominal exam: PRESENT: normal bowel sounds, soft. ABSENT: distended, guarding, mass, organolmegaly, rebound, tenderness Rectal exam: PRESENT: deferred Extremities exam: PRESENT: full ROM. ABSENT: calf tenderness, clubbing, pedal edema Neurological exam: PRESENT: alert, awake, oriented to person, oriented to place, oriented to time, oriented to situation, CN II-XII grossly intact. ABSENT: motor sensory deficit Psychiatric exam: PRESENT: appropriate affect, normal mood. ABSENT: homicidal ideation, suicidal ideation Skin exam: PRESENT: dry, intact, warm. ABSENT: cyanosis, rash Results Laboratory Results: 03/19/18 03:37 03/19/18 03:37 03/18/18 03/18/18 03/18/18 09:42 09:42 16:02 Creatine Kinase 167 102 CK-MB (CK-2) Troponin I 0.050 NT-Pro-B Natriuret Pep 03/18/18 03/18/18 03/18/18 16:02 21:45 21:45 Creatine Kinase 89 CK-MB (CK-2) 0.55 Troponin I 0.036 0.037 NT-Pro-B Natriuret Pep 03/19/18 03/19/18 03:37 03:37 Creatine Kinase 78 CK-MB (CK-2) 0.44 Troponin I 0.038 NT-Pro-B Natriuret Pep 191 H Impressions: Chest/Abdomen CTA 03/18/18 00:00 IMPRESSION: NORMAL CTA OF THE CHEST. NO PULMONARY EMBOLI. Chest X-Ray 03/18/18 09:45 IMPRESSION: NO ACUTE RADIOGRAPHIC FINDING IN THE CHEST. Qualifiers - * PATIENT BEING DISCHARGED WITH ANY OF THE FOLLOWING DIAGNOSIS: No Plan Discharge Plan: Discharged home with self-care. Follow-up with primary care provider within 1 week. Patient is scheduled an outpatient renal ultrasound tomorrow; he is advised of the importance of completing this study. Follow-up with coater brake linings, Dr. Siu, as scheduled on . Return to the emergency department as needed for concerning symptoms. Time Spent: Less than 30 Minutes
== END 2018-03-19 16:45 | disposition home or self-care (01) ==
LOC: ER 09:10 → EH 11:14 → 5 15:02
PROVIDERS: ADMIT Internal Medicine; ATTEND Internal Medicine
PROC: HZ31ZZZ Individual Counseling for Substance Abuse Treatment, Behavioral (ICD-10-PCS; principal; 2018-03-18)
DX: R07.89 Other chest pain (principal); N62 Hypertrophy of breast; E11.8 Type 2 diabetes mellitus with unspecified complications; I10 Essential (primary) hypertension; M06.9 Rheumatoid arthritis, unspecified; Z79.4 Long term (current) use of insulin; M10.9 Gout, unspecified; E78.5 Hyperlipidemia, unspecified; F41.9 Anxiety disorder, unspecified; R51 Headache; Z73.3 Stress, not elsewhere classified; R06.09 Other forms of dyspnea; G47.30 Sleep apnea, unspecified; R11.0 Nausea; R79.89 Other specified abnormal findings of blood chemistry; F17.210 Nicotine dependence, cigarettes, uncomplicated; Z79.82 Long term (current) use of aspirin; Z79.899 Other long term (current) drug therapy
CPT/HCPCS: 99407; 93005 ×2; 99285; 96374; 96375; 36415 ×2; 82553 ×2; 82962 ×2; 82550 ×2; 85025 ×2; 80053 ×2; 84484 ×2; 83036; 80061; 83880; 93306; 71045; 71275; 93010 ×2; G0378 ×3; A9270 ×17; J1200; J2930; J2270 ×2; J3490; J2405; S0028; J1815

== ENCOUNTER → 2018-03-20 | Outpatient (CLI) | payer MEDICARE, MEDICAID ==
--- NOTE | 2018-03-20 08:49 | RADIOLOGY REPORT (SQ) ---
EXAM DESCRIPTION: U/S RETROPERITON (RENAL/AORTA) COMPLETED DATE/TIME: 03/20/2018 8:23 am REASON FOR STUDY: R94.4 ABNORMAL RESULTS OF KIDNEY FUNCTION STUDIES R94.4 ABNORMAL RESULTS OF KIDNE Y FUNCTION STUDIES COMPARISON: None. TECHNIQUE: Dynamic and static grayscale images acquired of the kidneys and bladder and recorded on P ACS. Additional selected color Doppler and spectral images recorded. LIMITATIONS: None. FINDINGS: RIGHT KIDNEY: Normal size. Normal echogenicity. No solid or suspicious masses. No hydronep hrosis. No calcifications. LEFT KIDNEY: Normal size. Normal echogenicity. No solid or suspicious masses. No hydronephrosis. No calcifications. BLADDER: No masses. OTHER FINDINGS: No other significant finding. IMPRESSION: NORMAL RENAL AND BLADDER ULTRASOUND. TECHNICAL DOCUMENTATION: JOB ID: [id number] [employer]- All Rights Reserved Reading location - IP/workstation name: [email or web address]
== END ==
LOC: RAD 07:47
PROVIDERS: ATTEND Physician Assistant Medical
DX: R94.4 Abnormal results of kidney function studies (principal)
CPT/HCPCS: 76770

== ENCOUNTER 2018-05-09 11:38 | Emergency (ER) | payer MEDICARE, MEDICAID ==
--- NOTE | 2018-05-09 14:07 | ER Document Report ---
ED Medical Screen (RME) - General Chief Complaint: Abnormal Lab Results Stated Complaint: ABNORMAL LABS Time Seen by Provider: 05/09/18 14:00 Primary Care Provider: Rachel DIEGO MD [Primary Care Provider] - Follow up as needed Information source: Patient Notes: 42-year-old's male with a history of diabetes, hypertension, renal failure presents emergency department with complaints of abnormal labs. Patient's been following up with a house repairer and had blood work done this morning. He was contacted by the office and told to go to the emergency department because his potassium was 6.2. Patient is not a dialysis patient. I have greeted and performed a rapid initial assessment of this patient. A comprehensive ED assessment and evaluation of the patient, analysis of test resu lts and completion of the medical decision making process will be conducted by additional ED providers. PHYSICAL EXAMINATION: GENERAL: Well-appearing, well-nourished and in no acute distress. HEAD: Atraumatic, normocephalic. EYES: Pupils equal round extraocular movements intact, conjunctiva are normal. ENT: Nares patent NECK: Normal range of motion LUNGS: No respiratory distress Musculoskeletal: Normal range of motion NEUROLOGICAL: Normal speech, normal gait. PSYCH: Normal mood, normal affect. SKIN: Warm, Dry, normal turgor, no rashes or lesions noted. TRAVEL OUTSIDE OF THE [place] IN LAST 30 DAYS: No - Related Data Allergies/Adverse Reactions: IVP DYE Allergy (Uncoded 05/09/18 11:48) Past Medical History - Social History Chew tobacco use (# tins/day): No Frequency of alcohol use: None Drug Abuse: None - Past Medical History Cardiac Medical History: Reports: Hx Hypertension Endocrine Medical History: Reports: Hx Diabetes Mellitus Type 2 Renal/ Medical History: Denies: Hx Peritoneal Dialysis Musculoskeltal Medical History: Reports Hx Arthritis - gout, rheumatoid arthrit is, Reports Hx Gout Psychiatric Medical History: Reports: Hx Schizophrenia Denies: Hx Depression Past Surgical History: Reports: Hx Orthopedic Surgery - Immunizations Immunizations up to date: Yes Hx Diphtheria, Pertussis, Tetanus Vaccination: No Physical Exam - Vital signs Vitals: Temp Pulse Resp BP Pulse Ox 98.2 F 76 20 124/80 100 05/09/18 11:52 05/09/18 11:52 05/09/18 11:52 05/09/18 11:52 05/09/18 11:52 Course - Vital Signs Vital signs: Temp Pulse Resp BP Pulse Ox 98.2 F 76 20 124/80 100 05/09/18 11:52 05/09/18 11:52 05/09/18 11:52 05/09/18 11:52 05/09/18 11:52 Doctor's Discharge - Discharge Referrals: Rachel DIEGO MD [Primary Care Provider] - Follow up as needed
[2018-05-09 14:55] LABS: ABSOLUTE BASOPHILS # (AUTO) 0.1 10^3/uL (0.0-0.2); ABSOLUTE EOSINOPHILS # (AUTO) 0.3 10^3/uL (0.0-0.6); ABSOLUTE MONOCYTES (AUTO) 0.7 10^3/uL (0.1-1.4); ABSOLUTE NEUT (AUTO) 6.6 10^3/uL (1.7-8.2); BASOPHILS % (AUTO) 0.7 % (0-2); EOSINOPHILS % (AUTO) 2.6 % (0-6); HEMATOCRIT 42.6 % (37.9-51.0); HEMOGLOBIN 14.1 g/dL (13.5-17.0); LYMPHOCYTES % (AUTO) 28.2 % (13-45); MEAN CORPUSCULAR HEMOGLOBIN 29.1 pg (27.0-33.4); MEAN CORPUSCULAR VOLUME 88 fl (80-97); MONOCYTES % (AUTO) 6.4 % (3-13); RED BLOOD COUNT 4.83 10^6/uL (4.35-5.55); RED CELL DISTRIBUTION WIDTH 14.4 % (11.5-14.0); SEGMENTED NEUTROPHILS % (AUTO) 62.1 % (42-78); TOTAL CELLS COUNTED % (AUTO) 100 %; WHITE BLOOD COUNT 10.6 10^3/uL (4.0-10.5)
[2018-05-09 15:16] LABS: PLATELET COUNT 461 10^3/uL (150-450)
[2018-05-09 16:42] LABS: ALANINE AMINOTRANSFERASE 12 U/L (21-72); ALBUMIN 4.4 g/dL (3.5-5.0); ALKALINE PHOSPHATASE 124 U/L (38-126); ANION GAP 12 (5-19); ASPARTATE AMINO TRANSFERASE 26 U/L (17-59); BILIRUBIN,DIRECT 0.4 mg/dL (0.0-0.4); BILIRUBIN,TOTAL 0.5 mg/dL (0.2-1.3); BLOOD UREA NITROGEN 26 mg/dL (7-20); CALCIUM 9.8 mg/dL (8.4-10.2); CARBON DIOXIDE 26 mmol/L (22-30); CHLORIDE 103 mmol/L (98-107); GLUCOSE 132 mg/dL (75-110); SODIUM 140.8 mmol/L (137-145); TOTAL PROTEIN 7.5 g/dL (6.3-8.2)
[2018-05-09 16:59] LABS: POTASSIUM 6.2 mmol/L (3.6-5.0)
[2018-05-09] MEDS ORDERED: FUROSEMIDE INJ/PF 40 MG/4 ML SDV IV ONE (17:26)
[2018-05-09] MEDS ORDERED: SODIUM POLYSTYRENE SULFONATE 15 GM/60 ML PO ONE (17:26)
[2018-05-09] MEDS ORDERED: NORMAL SALINE 1000 ML 1,000 ML IV ONE (17:26)
[2018-05-09] MEDS ORDERED: INSULIN REG, HUMAN 100 UNIT/ML 3 ML VIAL (PYX) IV ONE (18:35)
[2018-05-09] MEDS ORDERED: DEXTROSE 50%-WATER 25 GM/50 ML DISP.SYRIN IV ONE ×2 (18:36→18:44)
[2018-05-09 21:47] LABS: ANION GAP 11 (5-19); BLOOD UREA NITROGEN 25 mg/dL (7-20); CALCIUM 9.4 mg/dL (8.4-10.2); CARBON DIOXIDE 27 mmol/L (22-30); CHLORIDE 103 mmol/L (98-107); GLUCOSE 139 mg/dL (75-110); POTASSIUM 5.4 mmol/L (3.6-5.0); SODIUM 141.3 mmol/L (137-145)
--- NOTE | 2018-05-09 22:20 | ER Document Report ---
ED General - General Chief Complaint: Abnormal Lab Results Stated Complaint: ABNORMAL LABS Time Seen by Provider: 05/09/18 14:00 Primary Care Provider: Rachel COLON MD [ACTIVE STAFF] - 05/13/18 Notes: Patient is a 42-year-old male with a past medical history of chronic kidney disease who presents after being informed by his nephrology office that he needed to come to the emergency department for hyperkalemia. The patient denies any associated symptoms but does report that he chronically has intermittent le ft-sided chest discomfort, unchanged today. Describes the pain as a stabbing, cramping pain to the left side of his chest that comes and goes. Nothing seems to improve or worsen the pain. Had a cardiac catheterization on 27 April which did not show any occlusions requiring intervention. Denies any prior history of hyperkalemia. TRAVEL OUTSIDE OF THE [place] IN LAST 30 DAYS: No - Related Data Allergies/Adverse Reactions: IVP DYE Allergy (Uncoded 05/09/18 11:48) Past Medical History - General Information source: Patient - Social History Smoking Status: Former Smoker Chew tobacco use (# tins/day): No Frequency of alcohol use: None Drug Abuse: None Lives with: Spouse/Significant other Family History: Reviewed & Not Pertinent Patient has suicidal ideation: No Patient has homicidal ideation: No - Past Medical History Cardiac Medical History: Reports: Hx Hypertension Endocrine Medical History: Reports: Hx Diabetes Mellitus Type 2 Renal/ Medical History: Denies: Hx Peritoneal Dialysis Musculoskeletal Medical History: Reports Hx Arthritis - gout, rheumatoid arthritis, Reports Hx Gout Psychiatric Medical History: Reports: Hx Schizophrenia Denies: Hx Depression Past Surgical History: Reports: Hx Orthopedic Surgery - Immunizations Immunizations up to date: Yes Hx Diphtheria, Pertussis, Tetanus Vaccination: No Hx Pneumococcal Vaccination: 04/02/00 Review of Systems - Review of Systems Notes: Constitutional: Negative for fever. HENT: Negative for sore throat. Eyes: Negative for visual changes. Cardiovascular: Negative for chest pain. Respiratory: Negative for shortness of breath. Gastrointestinal: Negative for abdominal pain, vomiting or diarrhea. Genitourinary: Negative for dysuria. Musculoskeletal: Negative for back pain. Skin: Negative for rash. Neurological: Negative for headaches, weakness or numbness. 10 point ROS negative except as marked above and in HPI. Physical Exam - Vital signs Vitals: Temp Pulse Resp BP Pulse Ox 98.2 F 76 20 124/80 100 05/09/18 11:52 05/09/18 11:52 05/09/18 11:52 05/09/18 11:52 05/09/18 11:52 Interpretation: Normal Notes: PHYSICAL EXAMINATION: GENERAL: Well-appearing, well-nourished and in no acute distress. HEAD: Atraumatic, normocephalic. EYES: Pupils equal round and reactive to light, extraocular movements intact, sclera anicteric, conjunctiva are normal. ENT: nares patent, oropharynx clear without exudates. Moist mucous membranes. NECK: Normal range of motion, supple without lymphadenopathy LUNGS: Breath sounds clear to auscultation bilaterally and equal. No wheezes rales or rhonchi. HEART: Regular rate and rhythm without murmurs ABDOMEN: Soft, nontender, normoactive bowel sounds. No guarding, no rebound. No masses appreciated. EXTREMITIES: Normal range of motion, no pitting or edema. No cyanosis. NEUROLOGICAL: No focal neurological deficits. Moves all extremities spontaneously and on command. PSYCH: Normal mood, normal affect. SKIN: Warm, Dry, normal turgor, no rashes or lesions noted. Course - Re-evaluation Re-evalutation: 05/09/18 22:18 Patient presents with acute on chronic kidney disease, concern for hyperkalemia as an outpatient. Repeat potassium here in the emergency department was 6.2. After receiving insulin, dextrose, Kayexalate, Lasix and IV fluids patient's potassium did decrease to 5.4. No concerning EKG changes. Patient's laboratories in March showed moderate kidney disease, no evidence of hyperkalemia. Patient had a diagnostic cardiac catheterization at the end of April 2018 due to concern of recurring left-sided chest pain which the patient is continued to experience including here in the emergency department. This was without any evidence of significant occlusive disease, no stents were placed. However I imagine that the elective cardiac catheterization would not have been undertaken with the patient's current labs and this is the first of the laboratories that we have had since that time 10 days ago. I have instructed the patient to withhold lisinopril. He has been prescribed Kayexalate. I discussed the plan with Dr. Colon, the patient's wheel and caster repairer, who was in agreement. In regards to the chest pain the patient has been expensing I do not believe he should be initiating an ACS workup as patient reports that this is long-standing, not new or different today and is actually the reason for which she had a cardiac catheterization less than 10 days ago. EKGs today without ischemic changes. At this time will discharge with return precautions and follow-up recommendations. Verbal discharge instructions given a the bedside and opportunity for questions given. Medication warnings reviewed. Patient is in agreement with this plan and has verbalized understanding of return precautions and the need for primary care follow-up in the next 24-72 hours. - Vital Signs Vital signs: Temp Pulse Resp BP Pulse Ox 98.4 F 76 14 113/85 100 05/09/18 23:22 05/09/18 11:52 05/09/18 21:03 05/09/18 23:22 05/09/18 23:22 - Laboratory Result Diagrams: 05/09/18 14:23 05/09/18 21:14 Laboratory results interpreted by me: 05/09/18 05/09/18 05/09/18 14:23 16:08 21:14 WBC 10.6 H RDW 14.4 H Plt Count 461 H Potassium 6.2 H* 5.4 H BUN 26 H 25 H Creatinine 2.81 H 2.57 H Est GFR ( Amer) 30 L 33 L Est GFR (Non-Af Amer) 25 L 28 L Glucose 132 H 139 H ALT 12 L - EKG Interpretation by Me Additional EKG results interpreted by me: 05/09/18 22:20 Sinus rhythm, rate 62. No ST elevations or depressions. QTC is 390. Discharge - Discharge Clinical Impression: Acute kidney injury superimposed on chronic kidney disease, Contrast dye induced nephropathy, Hyperkalemia Condition: Stable Disposition: HOME, SELF-CARE Additional Instructions: Please discontinue lisinopril until you are instructed to restart by Dr. Colon. Please follow-up with Dr. Colon in his office on Sunday for recheck of your labs and reassessment. Please take Kayexalate as prescribed. As we discussed, your worsening of your kidney function is likely due to contrast he received during her cardiac catheterization at the end of April. Return if you pass out, have shortness of breath, fever of greater than 100.4 F, or any other symptoms that are worrisome to you. Prescriptions: Sodium Polystyrene Sulfonate [Sps] 15 gm PO DAILY #60 ml Referrals: Rachel COLON MD [ACTIVE STAFF] - 05/13/18
[2018-05-09 23:24] VITALS: BP 113/85
--- NOTE | 2018-05-10 12:45 | EKG REPORT ---
SEVERITY:- BORDERLINE ECG - SINUS RHYTHM BORDERLINE INFERIOR Q WAVES BORDERLINE T ABNORMALITIES, INFERIOR LEADS : Confirmed by: aCrla Siu 10-May-2018 12:45:08
--- NOTE | 2018-05-10 12:46 | EKG REPORT ---
SEVERITY:- NORMAL ECG - SINUS RHYTHM : Confirmed by: Carla Siu 10-May-2018 12:45:26
== END 2018-05-09 23:25 | disposition home or self-care (01) ==
LOC: ER 11:38
DX: E87.5 Hyperkalemia (principal); N17.9 Acute kidney failure, unspecified; N14.1 Nephropathy induced by other drugs, medicaments and biological substances; T50.8X5A Adverse effect of diagnostic agents, initial encounter; E11.22 Type 2 diabetes mellitus with diabetic chronic kidney disease; I12.9 Hypertensive chronic kidney disease with stage 1 through stage 4 chronic kidney disease, or unspecified chronic kidney disease; N18.9 Chronic kidney disease, unspecified; X58.XXXA Exposure to other specified factors, initial encounter
CPT/HCPCS: 93005; 99285; 96374; 36415; 85025; 80048; 80053; 93010; J3490; J1940; A9270; J7030; 81001; 84550; J1815

== ENCOUNTER → 2018-05-09 | Outpatient (CLI) | payer MEDICARE, MEDICAID ==
[2018-05-09 10:19] LABS: APPEARANCE,URINE CLEAR; BILIRUBIN,URINE NEGATIVE (NEGATIVE); COLOR,URINE STRAW; GLUCOSE, URINE 50 mg/dL (NEGATIVE); KETONES,URINE NEGATIVE (NEGATIVE); LEUKOCYTE ESTERASE,URINE NEGATIVE (NEGATIVE); NITRITE,URINE NEGATIVE (NEGATIVE); PROTEIN,URINE NEGATIVE (NEGATIVE); URINE SPECIFIC GRAVITY 1.011; UROBILINOGEN,URINE NEGATIVE mg/dL (<2.0)
[2018-05-09 10:20] LABS: ABSOLUTE BASOPHILS # (AUTO) 0.1 10^3/uL (0.0-0.2); ABSOLUTE EOSINOPHILS # (AUTO) 0.2 10^3/uL (0.0-0.6); ABSOLUTE LYMPHOCYTES (AUTO) 2.3 10^3/uL (0.5-4.7); ABSOLUTE MONOCYTES (AUTO) 0.5 10^3/uL (0.1-1.4); ABSOLUTE NEUT (AUTO) 5.7 10^3/uL (1.7-8.2); BASOPHILS % (AUTO) 1.1 % (0-2); HEMATOCRIT 40.4 % (37.9-51.0); HEMOGLOBIN 13.6 g/dL (13.5-17.0); LYMPHOCYTES % (AUTO) 25.9 % (13-45); MEAN CORPUSCULAR HEMOGLOBIN 29.2 pg (27.0-33.4); MEAN CORPUSCULAR HGB CONC 33.6 g/dL (32.0-36.0); MEAN CORPUSCULAR VOLUME 87 fl (80-97); MONOCYTES % (AUTO) 5.6 % (3-13); PLATELET COUNT 435 10^3/uL (150-450); RED BLOOD COUNT 4.65 10^6/uL (4.35-5.55); RED CELL DISTRIBUTION WIDTH 14.1 % (11.5-14.0); SEGMENTED NEUTROPHILS % (AUTO) 65.4 % (42-78); TOTAL CELLS COUNTED % (AUTO) 100 %; WHITE BLOOD COUNT 8.8 10^3/uL (4.0-10.5)
[2018-05-09 10:37] LABS: ALANINE AMINOTRANSFERASE 17 U/L (21-72); ALBUMIN 4.2 g/dL (3.5-5.0); ALKALINE PHOSPHATASE 109 U/L (38-126); ANION GAP 13 (5-19); ASPARTATE AMINO TRANSFERASE 21 U/L (17-59); BILIRUBIN,DIRECT 0.3 mg/dL (0.0-0.4); BILIRUBIN,TOTAL 0.5 mg/dL (0.2-1.3); BLOOD UREA NITROGEN 25 mg/dL (7-20); CALCIUM 9.6 mg/dL (8.4-10.2); CARBON DIOXIDE 25 mmol/L (22-30); CHLORIDE 103 mmol/L (98-107); GLUCOSE 178 mg/dL (75-110); SODIUM 140.8 mmol/L (137-145); TOTAL PROTEIN 7.1 g/dL (6.3-8.2); URIC ACID 7.9 mg/dL (3.5-8.5)
[2018-05-09 10:45] LABS: POTASSIUM 6.2 mmol/L (3.6-5.0)
== END ==
LOC: OD 09:22
PROVIDERS: ATTEND Internal Medicine Nephrology
DX: I12.9 Hypertensive chronic kidney disease with stage 1 through stage 4 chronic kidney disease, or unspecified chronic kidney disease (principal); E11.22 Type 2 diabetes mellitus with diabetic chronic kidney disease; N18.3 Chronic kidney disease, stage 3 (moderate); M10.00 Idiopathic gout, unspecified site
CPT/HCPCS: 36415; 80053; 81001; 84550; 85025

== ENCOUNTER → 2018-06-21 | Outpatient (CLI) | payer MEDICARE, MEDICAID ==
[2018-06-21 13:33] LABS: HEMATOCRIT 42.5 % (37.9-51.0); HEMOGLOBIN 14.6 g/dL (13.5-17.0); MEAN CORPUSCULAR HEMOGLOBIN 29.1 pg (27.0-33.4); MEAN CORPUSCULAR HGB CONC 34.3 g/dL (32.0-36.0); MEAN CORPUSCULAR VOLUME 85 fl (80-97); PLATELET COUNT 338 10^3/uL (150-450); RED CELL DISTRIBUTION WIDTH 14.7 % (11.5-14.0)
[2018-06-21 13:44] LABS: APPEARANCE,URINE CLEAR; BILIRUBIN,URINE NEGATIVE (NEGATIVE); COLOR,URINE YELLOW; GLUCOSE, URINE 50 mg/dL (NEGATIVE); KETONES,URINE NEGATIVE (NEGATIVE); LEUKOCYTE ESTERASE,URINE NEGATIVE (NEGATIVE); NITRITE,URINE NEGATIVE (NEGATIVE); PROTEIN,URINE 30 mg/dL (NEGATIVE); URINE SPECIFIC GRAVITY 1.015; UROBILINOGEN,URINE NEGATIVE mg/dL (<2.0)
[2018-06-21 13:53] LABS: ANION GAP 12 (5-19); BLOOD UREA NITROGEN 14 mg/dL (7-20); CALCIUM 9.7 mg/dL (8.4-10.2); CARBON DIOXIDE 25 mmol/L (22-30); CHLORIDE 103 mmol/L (98-107); GLUCOSE 205 mg/dL (75-110); POTASSIUM 4.3 mmol/L (3.6-5.0); SODIUM 140.1 mmol/L (137-145); URIC ACID 6.8 mg/dL (3.5-8.5)
[2018-06-22 11:37] LABS: CREATININE URINE 162.2 mg/dL (Not Estab.); MICROALBUMIN URINE 174.2 ug/mL (Not Estab.)
== END ==
LOC: OD 12:48
PROVIDERS: ATTEND Internal Medicine Nephrology
DX: E11.22 Type 2 diabetes mellitus with diabetic chronic kidney disease (principal); N18.3 Chronic kidney disease, stage 3 (moderate); M10.00 Idiopathic gout, unspecified site; E87.5 Hyperkalemia
CPT/HCPCS: 36415; 80048; 81001; 82043; 82570; 84550; 85027

== ENCOUNTER → 2018-09-16 | Outpatient (CLI) | payer MEDICARE, MEDICAID ==
[2018-09-16 08:50] LABS: HEMATOCRIT 40.8 % (37.9-51.0); HEMOGLOBIN 13.5 g/dL (13.5-17.0); MEAN CORPUSCULAR HEMOGLOBIN 28.2 pg (27.0-33.4); MEAN CORPUSCULAR VOLUME 86 fl (80-97); PLATELET COUNT 305 10^3/uL (150-450); RED BLOOD COUNT 4.77 10^6/uL (4.35-5.55); RED CELL DISTRIBUTION WIDTH 16.3 % (11.5-14.0); WHITE BLOOD COUNT 7.9 10^3/uL (4.0-10.5)
[2018-09-16 09:21] LABS: APPEARANCE,URINE CLEAR; BILIRUBIN,URINE NEGATIVE (NEGATIVE); COLOR,URINE YELLOW; GLUCOSE, URINE NEGATIVE (NEGATIVE); KETONES,URINE NEGATIVE (NEGATIVE); LEUKOCYTE ESTERASE,URINE NEGATIVE (NEGATIVE); NITRITE,URINE NEGATIVE (NEGATIVE); PROTEIN,URINE NEGATIVE (NEGATIVE); URINE SPECIFIC GRAVITY 1.011; UROBILINOGEN,URINE NEGATIVE mg/dL (<2.0)
[2018-09-16 10:03] LABS: ANION GAP 11 (5-19); BLOOD UREA NITROGEN 15 mg/dL (7-20); CALCIUM 9.8 mg/dL (8.4-10.2); CARBON DIOXIDE 24 mmol/L (22-30); CHLORIDE 104 mmol/L (98-107); GLUCOSE 140 mg/dL (75-110); SODIUM 138.9 mmol/L (137-145); URIC ACID 10.9 mg/dL (3.5-8.5)
[2018-09-17 13:37] LABS: CREATININE URINE 91.2 mg/dL (Not Estab.); MICROALBUMIN URINE 12.3 ug/mL (Not Estab.)
== END ==
LOC: OD 08:20
PROVIDERS: ATTEND Internal Medicine Nephrology
DX: I12.9 Hypertensive chronic kidney disease with stage 1 through stage 4 chronic kidney disease, or unspecified chronic kidney disease (principal); N18.3 Chronic kidney disease, stage 3 (moderate); E11.22 Type 2 diabetes mellitus with diabetic chronic kidney disease; R80.9 Proteinuria, unspecified; M10.00 Idiopathic gout, unspecified site
CPT/HCPCS: 36415; 80048; 81001; 82043; 82570; 84550; 85027

== ENCOUNTER → 2019-03-21 | Outpatient (CLI) | payer MEDICARE, MEDICAID ==
--- NOTE | 2019-03-21 17:08 | EKG REPORT ---
SEVERITY:- BORDERLINE ECG - SINUS TACHYCARDIA PROBABLE LEFT ATRIAL ABNORMALITY BORDERLINE T ABNORMALITIES, INFERIOR LEADS : Confirmed by: Carla Siu 21-Mar-2019 17:07:51
== END ==
LOC: OD 12:05
PROVIDERS: ATTEND Physician Assistant Medical
DX: R00.0 Tachycardia, unspecified (principal)
CPT/HCPCS: 93005; 93010